=== PATIENT | female | born 1975 | race Two or more races ===

== ENCOUNTER 2025-01-10 12:25 | Inpatient (IN) | payer SELFPAY ==
[2025-01-09 21:04] VITALS: PULSE 104; RESP 17; O2SAT 98
[~2025-01-10] VITALS: Ht 157.5 cm; Wt 60.0 kg
--- NOTE | 2025-01-10 13:14 | ED.PDOC ---
General HPI Comments 49 year old female presents to the ED with a chief compliant of flank pain onset 2 weeks. Patient states she has been experiencing bilateral flank pain for the past 2 weeks as well as dysuria, hematuria, fever, chills. Denies nausea, vomiting, diarrhea, dizziness, headache, blurred vision, chest pain, shortness of breath. No other symptoms or modifying factors present at this time. Chief Complaint: Flank Pain Time Seen by MD: 13:10 Reviewed notes: Medications, Allergies Allergies: Coded Allergies: NO KNOWN ALLERGIES (Unverified , 01/10/25) Information Source: Patient Mode of Arrival: Ambulatory Severity: Moderate Timing: Weeks Duration: Since onset Prehospital treatment: None Onset: Spontaneous Symptoms: Dysuria, Hematuria History of: None Location: (R) Flank, (L)Flank Modifying factors: None associated signs and symptoms: Fever, Flank Pain, Dysuria, Hematuria Past Medical History PAST MEDICAL HISTORY: Denies Surgical History: Denies all surgeries BRIDGE CONTRACTOR History: 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 History Family History Family History: Reviewed,noncontributory to illness, No family hx of Cancer, No family hx of DM, No family hx of Heart adina, No family hx of HTN, No family hx ofKidney adina, No family hx of Liver adina, No family hx of Lung adina, No family hx of Stroke Social History Smoker: Non-Smoker Alcohol: Denies ETOH Use Drugs: Denies Drug Use Lives In: Home Constitutional: reports: chills, fever; denies: diaphoresis, fatigue, malaise, sweats, weakness, others EENTM: denies: blurred vision, double vision, ear bleeding, ear discharge, ear drainage, ear pain, ear ringing, eye pain, eye redness, hearing loss, mouth pain, mouth swelling, nasal discharge, nose bleeding, nose congestion, nose pain, photophobia, tearing, throat pain, throat swelling, voice changes, others Respiratory: denies: cough, hemoptysis, orthopnea, SOB at rest, shortness of breath, SOB with excertion, stridor, wheezing, others Cardiovascular: denies: chest pain, dizzy spells, diaphoresis, Dyspnea on exertion, edema, irregular heart beat, left arm pain, lightheadedness, palpitations, PND, syncope, others Gastrointestinal: denies: abdomen distended, abdominal pain, blood streaked bowels, constipated, diarrhea, dysphagia, difficulty swallowing, hematemesis, melena, nausea, poor appetite, poor fluid intake, rectal bleeding, rectal pain, vomiting, others Genitourinary: reports: dysuria, flank pain, hematuria; denies: abnormal vagina bleeding, burning, dyspareunia, frequency, incontinence, pain, , vagina discharge, urgency, others Neurological: denies: dizziness, fainting, headache, left sided numbness, left sided weakness, numbness, paresthesia, pre-existing deficit, right sided numbness, right sided weakness, seizure, speech problems, tingling, tremors, weakness, others Musculoskeletal: denies: back pain, gout, joint pain, joint swelling, muscle pain, muscle stiffness, neck pain, others Integumetry: denies: bruises, change in color, change in hair/nails, dryness, laceration, lesions, lumps, rash, wounds, others Allergic/Immunocompromised: denies: Difficulty Healing, Frequent Infections, Hives, Itching, others Hematologic/Lymphatic: denies: anemia, blood clots, easy bleeding, easy bruising, swollen glands, others Endocrine: denies: excessive hunger, excessive sweating, excessive thirst, excessive urination, flushing, intolerance to cold, intolerance to heat, u nexplained weight gain, unexplained weight loss, others Psychiatric: denies: anxiety, bipolar disorder, depression, hopeless, panic disorder, schizophrenia, sleepless, suicidal, others All Other Systems: Reviewed and Negative Physical Exam General Appearance: Moderate Distress, Normal HEENT: Normal ENT Inspection, Pharynx Normal, TMs Normal Neck: Full Range of Motion, Non-Tender, Normal, Normal Inspection Respiratory: Chest Non-Tender, Lungs Clear, No Accessory Muscle Use, No Respiratory Distress, Normal Breath Sounds Cardiovascular: No Edema, No JVD, No Murmur, No Gallop, Normal Peripheral Puls es, Regular Rate/Rhythm Breast Exam: Deferred Gastrointestinal: No Organomegaly, Non Tender, No Pulsatile Mass, Normal Bowel Sounds, Soft Genitalia: Deferred Pelvic: Deferred Rectal: Deferred Extremities: No calf tenderness, Normal capillary refill, Normal inspection, Normal range of motion, Non-tender, No pedal edema Musculoskeletal : Apperance: Normal Neurologic: Alert, software sales II-XII nml as Tested, No Motor Deficits, Normal Affect, Normal Mood, No Sensory Deficits Cerebellar Function: Normal Reflexes: Normal Skin: Dry, Normal Color, Warm Peripheral Pulses: 3+ Radial (R), 3+ Radial (L) Lymphatic: No Adenopathy Was a procedure done? Was a procedure done?: No Differential Diagnosis Kidney stone (Female): Musculoskeletal pain, Urinary obstruction, Urolithiasis X-Ray, Labs, Meds, VS Vital Signs Date Time Temp Pulse Resp B/P (MAP) Pulse Ox O2 Delivery O2 Flow Rate FiO2 01/10/25 12:28 97.0 124 15 132/81 100 97.0 Lab Test 01/10/25 13:31 Range/Units White Blood Count 6.6 4.4-10.8 10^3/uL Red Blood Count 4.11 4.0-5.20 10^6/uL Hemoglobin 12.8 12.2-16.2 g/dL Hematocrit 37.1 36.0-46.0 % Mean Corpuscular Volume 90.4 80.0-100.0 fL Mean Corpuscular Hemoglobin 31.3 28.0-32.0 pg Mean Corpuscular Hemoglobin Concent 34.6 32.0-36.0 g/dL Red Cell Distribution Width 17.3 H 11.8-14.3 % Platelet Count 151 140-450 10^3/uL Mean Platelet Volume 10.1 6.9-10.8 fL Neutrophils (%) (Auto) 58.8 37.0-80.0 % Lymphocytes (%) (Auto) 24.4 10.0-50.0 % Monocytes (%) (Auto) 13.9 H 0.0-12.0 % Eosinophils (%) (Auto) 2.1 0.0-7.0 % Basophils (%) (Auto) 0.8 0.0-2.0 % Neutrophils # (Auto) 3.9 1.6-8.6 10 ^3/uL Lymphocytes # (Auto) 1.6 0.4-5.4 10 ^3/uL Monocytes # (Auto) 0.9 0-1.3 10 ^3/uL Eosinophils # (Auto) 0.1 0-0.8 10 ^3/uL Basophils # (Auto) 0.1 0-0.2 10 ^3/uL Nucleated Red Blood Cells 0.3 % Sodium Level 138 136-145 mmol/L Potassium Level 3.5 3.5-5.1 mmol/L Chloride Level 104 98-107 mmol/L Carbon Dioxide Level 26 20-31 mmol/L Anion Gap 8 5-15 Blood Urea Nitrogen 9 9-23 mg/dL Creatinine 0.74 0.550-1.02 mg/dL Glomerular Filtration Rate Calc 100 >90 mL/min BUN/Creatinine Ratio 12.2 10.0-20.0 Serum Glucose 101 74-106 mg/dL Calcium Level 8.5 L 8.7-10.4 mg/dL Patient alert. Has been feeling weak. Burning on urination. Possible sepsis from urinary tract infection. WBC within normal limits. Hemoglobin within normal limits. Tachycardic. Saturation pristine on room air. Explained to the patient. Continue monitoring. Time of 1ST Reevaluation: 13:40 Reevaluation 1ST: Unchanged Patient Education/Counseling: Diagnosis, Treatment, Prognosis Family Education/Counseling: No Family Present SEPSIS Sepsis Screen Date sepsis recognized/suspect: Jan 10, 2025 Time Sepsis recognized/suspect: 1230 Recent Procedure: No On Antibiotic Therapy: No Respiratory Rate >20: No Heart Rate >90: Yes Temp<36 C (96.8 F) or >38.3 C: No SBP <90 or MAP <65 mmHG: No New Acute Mental Status Change: No Is the patient on CPAP, BIPAP,: No Physician Orders Urinalysis (01/10/25 13:19) Urine Bacterial Culture (01/10/25 13:19) Vital Signs Date Time Temp Pulse Resp B/P (MAP) Pulse Ox O2 Delivery O2 Flow Rate FiO2 01/10/25 12:28 97.0 124 15 132/81 100 97.0 Laboratory Tests Test 01/10/25 13:31 White Blood Count 6.6 10^3/uL (4.4-10.8) Departure 1 Departure Time of Disposition: 14:46 Impression: Primary Impression: Sepsis due to urinary tract infection Disposition: 09 ADMITTED INPATIENT Admit to: Med Surg Condition: Guarded Critical Care Note Critical Care Time?: No Stability Stability form required: No Heart Score Heart Score: Heart Score Response (Comments) Value History N/A 0 EKG N/A 0 Age N/A 0 Risk Factors N/A 0 Troponin N/A 0 Total 0 I personally scribed for JASIEL HINES MD ([email or web address]) on 01/10/25 at 13:14. Electronically submitted by Brynn De Jesus ([email or web address]). JASIEL HINES MD Jan 10, 2025 13:14
[2025-01-10] MEDS: ONDANSETRON HCL 4 MG/2 ML VIAL IV ONE (13:30)
[2025-01-10] MEDS: MORPHINE SULFATE 4 MG/ML SYR/VIAL IV ONE (13:30)
[2025-01-10] MEDS: SODIUM CHLORIDE 0.9% 1,000 ML IVB ONE (13:30)
[2025-01-10 13:49] LABS: Hematocrit 37.1 % (36.0-46.0); Hemoglobin 12.8 g/dL (12.2-16.2); Mean Corpuscular Hemoglobin 31.3 pg (28.0-32.0); Mean Corpuscular Volume 90.4 fL (80.0-100.0); Nucleated Red Blood Cells % 0.3 %
[2025-01-10 14:00] LABS: Chloride 104 mmol/L (98-107); Potassium 3.5 mmol/L (3.5-5.1); Sodium 138 mmol/L (136-145)
[2025-01-10 14:01] LABS: Anion Gap 8 (5-15); Carbon Dioxide 26 mmol/L (20-31)
[2025-01-10 14:02] LABS: Calcium 8.5 mg/dL (8.7-10.4)
[2025-01-10 14:07] LABS: Blood Urea Nitrogen 9 mg/dL (9-23); Glucose 101 mg/dL (74-106)
[2025-01-10 14:09] LABS: BUN/Creatinine Ratio 12.2 (10.0-20.0)
[2025-01-10 16:25] LABS: Urine Protein, UAD Negative (Negative)
[2025-01-10] MEDS ORDERED: ACETAMINOPHEN 325 MG TAB PO PRN (16:30)
[2025-01-10 16:56] LABS: Amphetamine Screen, Urine Neg (NEGATIVE); Barbiturate Scree,Urine Neg (NEGATIVE); Benzodiazephine Screen, Urine Neg (NEGATIVE); Cannabinoid Screen, Urine Neg (NEGATIVE); Cocaine Screen, Urine Neg (NEGATIVE); Opiate Scree,Urine Neg (NEGATIVE); Phencyclidine Screen, Urine Neg (NEGATIVE)
--- NOTE | 2025-01-10 18:00 | DVHHP2 ---
History of Present Illness History of Present Illness This is a 49-year-old female with no PMHx and not taking any chronic medications, who presents with 2 weeks of bilateral flank pain, progressive in intensity, associated with dysuria and red urine. She reports fever that started yesterday and chills today. She denies nausea, vomiting, abdominal pain, chest pain, cough, SOB, vaginal bleeding, or discharge. She had a UTI in August 2024. Labs show CBC normal, CMP normal, but UA with bilirubin 2+, leukocyte esterase 1+, WBC 11, nitrites negative. She has mild bilateral CVA tenderness on exam. She will be admitted for suspected complicated UTI vs early pyelonephritis. PAST MEDICAL HISTORY No PMHx. PAST SURGICAL HISTORY Denies. MEDICATIONS None. ALLERGIES NKDA. SOCIAL HISTORY Lives at home. Denies tobacco, alcohol, illicit drugs. FAMILY HISTORY Non-contributory. Review of Systems Allergies: Coded Allergies: NO KNOWN ALLERGIES (Unverified , 01/10/25) Medications Current Medications Medications Dose Ordered Sig/Sunitha Route Start Time Stop Time Status Last Admin Dose Admin Acetaminophen 650 mg Q6HP PRN PO 01/10/25 16:30 Enoxaparin Sodium 40 mg DAILY SC 01/11/25 10:00 Ceftriaxone Sodium 50 ml @ 100 mls/hr DAILY@09 IV 01/11/25 16:30 Ketorolac Tromethamine 15 mg Q6HPRN PRN IV 01/10/25 16:30 01/15/25 16:29 Exam Vital Signs Vital Signs Date Time Temp Pulse Resp B/P (MAP) Pulse Ox O2 Delivery O2 Flow Rate FiO2 01/10/25 12:28 97.0 124 15 132/81 100 97.0 Exam General: Alert, oriented, uncomfortable but non-toxic. HEENT: NC/AT, PERRLA, no icterus. Neck: Supple, no LAD. CV: RRR, no murmurs/rubs/gallops. Resp: CTAB, no wheezes or crackles. GI: Soft, nondistended, mild suprapubic tenderness. No guarding or rebound. /Back: Mild bilateral CVA tenderness. Ext: No edema. Skin: Warm, dry, no rashes. Neuro: A&O3, no focal deficits. Psych: Appropriate. Labs/Xrays Labs Test 01/10/25 15:53 01/10/25 13:31 Range/Units Urine Color Dark-yellow Yellow Urine Clarity Turbid H Clear Urine pH 6.0 5.0-9.0 Urine Specific Jenkins 1.017 1.001-1.035 Urine Protein Negative Negative Urine Ketones Negative Negative Urine Blood Negative Negative /uL Urine Nitrite Negative Negative Urine Bilirubin 2+ H Negative Urine Urobilinogen 6 Negative mg/dL Urine Leukocyte Esterase 1+ Negative /uL Urine RBC 3 0 - 4 /hpf Urine Microscopic WBC 11 H 0-5 /HPF Urine Squamous Epithelial Cells Mod <5 /hpf Urine Bacteria Few H None Seen /hpf Urine Mucus Few None Seen Urine Glucose Normal Normal mg/dL Urine Opiates Screen Neg NEGATIVE Urine Fentanyl Screen Neg NEGATIVE Urine Barbiturates Screen Neg NEGATIVE Urine Phencyclidine Screen Neg NEGATIVE Urine Amphetamines Screen Neg NEGATIVE Urine Benzodiazepines Screen Neg NEGATIVE Urine Cocaine Screen Neg NEGATIVE Urine Cannabinoids Screen Neg NEGATIVE White Blood Count 6.6 4.4-10.8 10^3/uL Red Blood Count 4.11 4.0-5.20 10^6/uL Hemoglobin 12.8 12.2-16.2 g/dL Hematocrit 37.1 36.0-46.0 % Mean Corpuscular Volume 90.4 80.0-100.0 fL Mean Corpuscular Hemoglobin 31.3 28.0-32.0 pg Mean Corpuscular Hemoglobin Concent 34.6 32.0-36.0 g/dL Red Cell Distribution Width 17.3 H 11.8-14.3 % Platelet Count 151 140-450 10^3/uL Mean Platelet Volume 10.1 6.9-10.8 fL Neutrophils (%) (Auto) 58.8 37.0-80.0 % Lymphocytes (%) (Auto) 24.4 10.0-50.0 % Monocytes (%) (Auto) 13.9 H 0.0-12.0 % Eosinophils (%) (Auto) 2.1 0.0-7.0 % Basophils (%) (Auto) 0.8 0.0-2.0 % Neutrophils # (Auto) 3.9 1.6-8.6 10 ^3/uL Lymphocytes # (Auto) 1.6 0.4-5.4 10 ^3/uL Monocytes # (Auto) 0.9 0-1.3 10 ^3/uL Eosinophils # (Auto) 0.1 0-0.8 10 ^3/uL Basophils # (Auto) 0.1 0-0.2 10 ^3/uL Nucleated Red Blood Cells 0.3 % Sodium Level 138 136-145 mmol/L Potassium Level 3.5 3.5-5.1 mmol/L Chloride Level 104 98-107 mmol/L Carbon Dioxide Level 26 20-31 mmol/L Anion Gap 8 5-15 Blood Urea Nitrogen 9 9-23 mg/dL Creatinine 0.74 0.550-1.02 mg/dL Glomerular Filtration Rate Calc 100 >90 mL/min BUN/Creatinine Ratio 12.2 10.0-20.0 Serum Glucose 101 74-106 mg/dL Hemoglobin A1c 4.6 <5.7 % A1C Calcium Level 8.5 L 8.7-10.4 mg/dL SEPSIS Sepsis Screen Date sepsis recognized/suspect: Jan 10, 2025 Time Sepsis recognized/suspect: 1229 Recent Procedure: No On Antibiotic Therapy: No Respiratory Rate >20: No Heart Rate >90: Yes Temp<36 C (96.8 F) or >38.3 C: No SBP <90 or MAP <65 mmHG: No New Acute Mental Status Change: No Is the patient on CPAP, BIPAP,: No Physician Orders Urine Bacterial Culture (01/10/25 13:19) Admit (01/10/25 16:18) Code Status (01/10/25 16:18) Vital Signs .PER UNIT PROTOCOL (01/10/25 16:18) Review Orders With Adm.Md (01/10/25 16:18) Regular Diet (01/10/25 Dinner) Acetaminophen Tablet (Tylenol Tablet) (01/10/25 16:30) Notify Md Of Changes From Base (01/10/25 16:18) Advance Directive (01/10/25 16:18) Patient Condition (01/10/25 16:18) Allergies (01/10/25 16:18) Ambulate Every 4hours Q4H (01/10/25 16:18) Enoxaparin Sodium (Lovenox) (01/11/25 10:00) Oxygen By Nasal Cannula (01/10/25 16:18) Stat Ekg For Chest Pain (01/10/25 16:18) Notify Md Of Changes From Base (01/10/25 16:18) Route Sales Associate For 24 Hours (01/10/25 16:18) Emergency Dysrhythmia Protocol (01/10/25 16:18) Rhythm Strips Once Every Shift (01/10/25 16:18) Ceftriaxone 1gm/50ml (Rocephin) (01/11/25 16:30) Ketorolac Injection (Toradol Injection) (01/10/25 16:30) Sodium Chloride 0.9% (01/10/25 16:30) Kidney (01/10/25 17:59) Vital Signs Date Time Temp Pulse Resp B/P (MAP) Pulse Ox O2 Delivery O2 Flow Rate FiO2 01/10/25 12:28 97.0 124 15 132/81 100 97.0 Laboratory Tests Test 01/10/25 13:31 White Blood Count 6.6 10^3/uL (4.4-10.8) Assessment/Plan Assessment/Plan 49-year-old female with no PMHx admitted for complicated UTI vs early pyelonephritis. 1. Complicated UTI vs acute pyelonephritis Symptomatic: flank pain 2 weeks, dysuria, red urine, fever/chills. UA: bilirubin 2+, LE 1+, WBC 11; nitrite negative. CBC/BMP normal. Mild bilateral CVA tenderness. Plan: Start Ceftriaxone 1g IV daily. IV fluids. Urine culture Renal ultrasound to rule out obstruction, hydronephrosis, nephrolithiasis. Strict I/Os. Pain control: Ketorolac IV PRN Reassess after culture results. Disposition Admit to med/surg. Case discussed with Dr Luther Plan discussed with: Patient, Other (rn) My Orders Orders - DILLON MURPHY Procedure Category Date Status Time Admit ADMIT 01/10/25 Transmitted 16:18 Code Status CODE 01/10/25 Transmitted 16:18 Vital Signs DARON 01/10/25 In Process 16:18 Review Orders With DARON 01/10/25 In Process Adm. 16:18 Regular Diet DIET 01/10/25 Transmitted Dinner Acetaminophen Tablet PHA 01/10/25 In Process (Tylenol Tablet) 16:30 Notify Of Changes DARON 01/10/25 In Process From Base 16:18 Advance Directive DARON 01/10/25 In Process 16:18 Patient Condition ORDERS 01/10/25 Transmitted 16:18 Allergies DARON 01/10/25 In Process 16:18 Ambulate Every 4hours DARON 01/10/25 In Process 16:18 Enoxaparin Sodium PHA 01/11/25 In Process (Lovenox) 10:00 Oxygen By Nasal RT 01/10/25 Transmitted Cannula 16:18 Stat Ekg For Chest [facility] 01/10/25 In Process Pain 16:18 Notify Of Changes [facility] 01/10/25 In Process From Base 16:18 Route Sales Associate For [facility] 01/10/25 In Process 24 Hours 16:18 Emergency Dysrhythmia [facility] 01/10/25 In Process Protocol 16:18 Rhythm Strips Once [facility] 01/10/25 In Process Every Shift 16:18 Ceftriaxone 1gm/50ml [facility]A 01/11/25 In Process (Rocephin) 16:30 Ketorolac Injection PHA 01/10/25 In Process (Toradol Injection) 16:30 Sodium Chloride 0.9% PHA 01/10/25 In Process 16:30 Kidney US 01/10/25 Verified 17:59 Date of Service: Jan 10, 2025 Billing Provider: DILLON MURPHY RESIDENT Common Visit Codes: [id number] INP/OBS CARE (HIGH) DILLON MURPHY Jan 10, 2025 18:00
--- NOTE | 2025-01-10 19:33 | DVH ---
INDICATION: rule out hydronephrosis TECHNIQUE: Multiple real-time sonographic images of the kidneys and bladder were obtained. COMPARISON: None FINDINGS: The right kidney measures 9.8 cm in length, which is normal in size. There is normal echogenicity of the right kidney. No hydronephrosis. The left kidney measures 9.9 cm in length, which is normal in size. There is normal echogenicity of the left kidney. No hydronephrosis. No large intraluminal masses are seen in the bladder. Prior to voiding the bladder volume measures volume 58 cc. Bladder wall is 1.5 mm Right and left ureteral jets visualized in the bladder Postvoid bladder volume not received IMPRESSION: 1. Normal sonographic appearance of the kidneys. No hydronephrosis. 2. Right kidney measures 9.8 cm. 3. Left kidney measures 9.9 cm.
[2025-01-10 21:00] VITALS: BP 115/72; PULSE 104; RESP 18; TEMP 97.7; O2SAT 98
[2025-01-10 21:04] VITALS: BP 115/72; PULSE 104; RESP 17; TEMP 97.7; O2SAT 98
[2025-01-11] VITALS (7 sets, daily range): BP systolic 92–110; BP diastolic 59–75; PULSE 76–100; RESP 17–20; TEMP 97.2–99.5; O2SAT 97–100
[2025-01-11 07:08] LABS: Anion Gap 7 (5-15); BUN/Creatinine Ratio 14.5 (10.0-20.0); Blood Urea Nitrogen 9 mg/dL (9-23); Carbon Dioxide 25 mmol/L (20-31); Potassium 3.6 mmol/L (3.5-5.1); Sodium 142 mmol/L (136-145); Total Protein 6.2 g/dL (5.7-8.2)
[2025-01-11 07:10] LABS: Hematocrit 30.0 % (36.0-46.0); Hemoglobin 10.2 g/dL (12.2-16.2); Mean Corpuscular Hemoglobin 30.5 pg (28.0-32.0); Mean Corpuscular Volume 89.8 fL (80.0-100.0)
[2025-01-11 07:18] LABS: Alanine Aminotransferase 380 U/L (7-40); Albumin 2.0 g/dL (3.2-4.8); Alkaline Phosphatase 449 U/L (46-116); Bilirubin, Total 8.1 mg/dL (0.2-1.0); Calcium 7.9 mg/dL (8.7-10.4); Chloride 110 mmol/L (98-107); Glucose 55 mg/dL (74-106)
[2025-01-11 07:51] LABS: Total Cells Counted 100.0 (100)
--- NOTE | 2025-01-11 09:17 | DVH ---
CLINICAL HISTORY: Cirrhosis of liver/hepatitis TECHNIQUE: Transabdominal sonogram was performed of the right upper quadrant. COMPARISON: None FINDINGS: The liver is heterogeneous in echogenicity and nodular in contour. There is a 2 cm echogenic lesion within the right hepatic lobe. No intrahepatic biliary ductal dilatation is present. The liver measures 12.5 cm. The gallbladder demonstrates mild nonspecific wall thickening. There is no stones or sludge. Sonographic brown's sign is reported to be absent. The common bile duct is normal in caliber, measuring 4 mm. The partially visualized pancreas is grossly unremarkable. The right kidney is normal in echogenicity and measures 11 cm in length. There is no evidence for hydronephrosis or calculi. IMPRESSION: Cirrhotic liver morphology with 2 cm right hepatic lobe echogenic lesion. Recommend liver MRI or CT with and without IV contrast for further evaluation. Mild nonspecific gallbladder wall thickening.
[2025-01-11] MEDS: SODIUM CHLORIDE 0.9% 1,000 ML IV ONE (09:29)
[2025-01-11] MEDS: ENOXAPARIN SOD 40 MG/0.4 ML SYRINGE SC SCH (09:29)
[2025-01-11 12:58] LABS: Iron 122.0 ug/dL (50-170)
[2025-01-11 13:05] LABS: Total Iron Binding Capacity 196.0 ug/dL (250-425)
[2025-01-11 13:50] LABS: INR 1.56 (0.9-1.15); Partial Thromboplastin Time 41.3 SEC (24.5-34.5); Prothrombin Time 15.8 sec (9.3-11.8)
--- NOTE | 2025-01-11 15:59 | DVHPNRES ---
Progress Note Date Seen: Jan 11, 2025 Resident Creating Document: KHLOE TAY RESIDENT Medical Necessity Reason Pt with a Central, PICC or Fol: No Subjective Review of Systems This is a 49-year-old female with no PMHx and not taking any chronic medications, who presents with 2 weeks of bilateral flank pain, progressive in intensity, 10/10, intermittent, radiating to the right lower abdomen, associated with nausea, dysuria and red urine. She reports fever that started yesterday and chills today. Patient also complained of unintentional weight loss and anorexia for a while. She denies nausea, vomiting, abdominal pain, chest pain, cough, SOB, vaginal bleeding, or discharge. She had a UTI in August 2024. Initial lab reviewed revealed bilirubin 8.5, AST of 642, ALT 380, alkaline phosphatase 449, UA with bilirubin 2+, leukocyte esterase 1+, WBC 11, nitrites negative. UDS negative A1c 4.6 iron 122, ferritin 692, % saturation 62.2. Ultrasound of the liver revealed-Cirrhotic liver morphology with 2 cm right hepatic lobe echogenic lesion. .Mild nonspecific gallbladder wall thickening. Renal ultrasound Normal sonographic appearance of the kidneys. No hydronephrosis. PMH-none PSH- none Allergy- NGT Personal History/ Social History- denies smoking/alcoholism/drug abuse, lives at home with the family ROS Cardiovascular- deny acute chest pain or shortness of breath or cough or palpitation Respiratory denies cough or short of breath or wheezing Gastrointestinal- denies any rectal bleeding or vomiting Musculoskeletal-denies acute joint swelling or tenderness or redness Neurological- denies acute dysarthria, dysphagia, change in vision Psychiatry- denies depression or SI or HI Skin- denies acute rash or purpura Patient was seen today at bedside, labs and chart reviewed Patient with transaminitis, ordered ultrasound of the liver which revealed suspected Cirrhotic liver morphology with 2 cm right hepatic lobe echogenic lesion MELD SCORE 19, estimated 3 month mortality 19.6 Ordered acute hepatitis panel, PT APTT, mitochondrial antibody, ASHLIE, serum acetaminophen level, serum iron, serum ferritin, serum alpha fetoprotein, CA 19.9, CEA, chromatin antibody, Yarelis 1 antibody, centromere B antibody,, MRCP Ordered GI consult for further evaluation and care Ceftriaxone for UTI, urine culture no growth so far PT 15.8, INR 1.56 Carcinoembryonic antigen 3.03 MRCP revealed- lesions within the liver measuring 2.3 cm, 0.9 cm concerning for potential neoplasm. Pancreatic and peripancreatic edema which could represent sequela of pancreatitis. Correlate with appropriate lab values. Gallbladder distention and pericholecystic/ gallbladder wall edema. No definitive choledocholithiasis identified. Common bile duct suboptimally characterized but appears normal in caliber. Correlate for cholecystitis. Small volume ascites fluid. Small bowel wall edema/ thickening which can be secondary to portal hypertension, enteritis, inflammatory disease. Ordered MRI abdomen with and without contrast Objective vital signs Vital Sign Date Time Temp Pulse Resp B/P (MAP) Pulse Ox O2 Delivery O2 Flow Rate FiO2 01/11/25 13:00 98.3 100 20 110/65 (80) 100 98.3 01/11/25 08:15 Room Air* 0 21 Total Intake and Output 01/10/25 01/10/25 01/11/25 15:00 23:00 07:00 Intake Total 1600 ml Balance 1600 ml medications Current Medications Medications Dose Ordered Sig/Sunitha Route Start Time Stop Time Status Last Admin Dose Admin Acetaminophen 650 mg Q6HP PRN PO 01/10/25 16:30 Enoxaparin Sodium 40 mg DAILY SC 01/11/25 10:00 01/11/25 09:29 40 MG Ketorolac Tromethamine 15 mg Q6HPRN PRN IV 01/10/25 16:30 01/15/25 16:29 Ceftriaxone Sodium/Dextrose 50 ml @ 50 mls/hr DAILY IV 01/11/25 08:15 01/11/25 09:29 50 MLS/HR Examination General examination- HEENT- PEERLA, no acute nasal discharge Cardiovascular- S1-S2 audible, rate and rhythm regular, no murmur Respiratory- CTAB, no wheeze or rhonchi Gastrointestinal-nontender, bowel sound+. Nondistended Musculoskeletal-no acute joint swelling or tenderness or redness Lower extremity- Neurological- cranial nerves intact, no acute dysarthria or dysphagia Psychiatry- denies depression or SI or HI Skin- no acute rash or purpura laboratory and microbiology Laboratory Tests 01/11/25 06:09 Test 01/11/25 06:09 Range/Units Serum Glucose 55 L 74-106 mg/dL Microbiology Date/Time Source Procedure Growth Status 01/10/25 15:53 Voided Urine Urine Culture - Preliminary No growth Resulted Problem List/Assessment/Plan Problem List/Assessment/Plan # Assessment and plan # UTI -urine culture no growth so far -continue ceftriaxone as prescribed # acute hepatic failure likely cirrhosis of liver/suspected malignancy of liver # cirrhosis of liver # suspected malignancy of the liver # transaminitis # ascites # suspected portal hypertension -bilirubin 8.5, AST of 642, ALT 380, alkaline phosphatase 449 -INR 1.56 -MELD SCORE 19, estimated 3 month mortality 19.6 -ultrasound of the liver which revealed suspected Cirrhotic liver morphology with 2 cm right hepatic lobe echogenic lesion -Ordered acute hepatitis panel, PT APTT, mitochondrial antibody, ASHLIE, serum acetaminophen level, serum iron, serum ferritin, serum alpha fetoprotein, CA 19.9, CEA, MRCP -MRCP revealed- lesions within the liver measuring 2.3 cm, 0.9 cm concerning for potential neoplasm. Pancreatic and peripancreatic edema which could represent sequela of pancreatitis. Gallbladder distention and pericholecystic/ gallbladder wall edema. No definitive choledocholithiasis identified. Common bile duct suboptimally characterized but appears normal in caliber. Correlate for cholecystitis. Small volume ascites fluid. Small bowel wall edema/ thickening which can be secondary to portal hypertension, enteritis, inflammatory disease. -continue current conservative management -Ordered MRI abdomen with and without contrast -ordered GI consult for further evaluation and care -continue current conservative manage Goals of care, Code status Full code ; discussed with >15 minutes PUD prophylaxis: Pantoprazole DVT prophylaxis: SCD Plan discussed with Dr. Luther , nursing staff, Total time spent on patient evaluation, chart review, assessment and plan, discussion discussion >35 minutes Plan discussed with: Patient, Other (RN) My Orders My Orders Orders - KHLOE TAY RESIDENT Procedure Category Date Status Time LIVER US 01/11/25 Resulted 08:08 Ceftriaxone 2gm/50ml PHA 01/11/25 In Process (Rocephin 2gm/50ml) 08:15 Acute Hepatitis Panel LAB 01/11/25 In Process 11:37 * [facility] Scientist CONS 01/11/25 Transmitted 14:11 Mrcp Mri MRI 01/11/25 Taken 14:11 Afp Serum Tumor Marker LAB 01/11/25 In Process 14:13 Carbohydrate Antigen LAB 01/11/25 In Process 19-9 14:45 Visit Coding STANDARD RES Billing Provider: SONDRA LUTHER MD Date of Service if different f: Jan 11, 2025 Common Visit Codes: 26724-[id number] INP/OBS CARE(HIGH) KHLOE TAY RESIDENT Jan 11, 2025 15:58
--- NOTE | 2025-01-11 16:01 | DVH ---
PROCEDURE: MRI MRCP MRI Indication: TROPONIN JAUNDICE/HEPATITIS/CIRRHOSIS COMPARISON: 01/11/2025 TECHNIQUE: Multiplanar multisequence images of the abdomen are obtained per MRCP protocol. FINDINGS: Adrenal glands unremarkable. The spleen measures 11.5 cm AP. Peripancreatic, pancreatic interstitial edema. Gallbladder distention. Pericholecystic, gallbladder wall edema. The common bile duct is overall poorly characterized but does not appear to be dilated measuring approximately 3 mm. Similarly, the pancreatic duct measures approximately 2 mm. The liver appears cirrhotic morphology. Posterior right hepatic lobe T2 bright lesion/ mass measuring 2.3 cm. Hepatic dome T2 bright lesion/ mass measuring 9 mm. Kidneys demonstrate no hydronephrosis. Stomach partially distended. Small volume of ascites fluid. Small bowel wall edema. IMPRESSION: Cirrhotic morphology appearance liver. There are 2 T2 bright lesions within the liver measuring 2.3 cm, 0.9 cm concerning for potential neoplasm. Recommend multiphasic MRI abdomen with and without contrast. Pancreatic and peripancreatic edema which could represent sequela of pancreatitis. Correlate with appropriate lab values. Gallbladder distention and pericholecystic/ gallbladder wall edema. No definitive choledocholithiasis identified. Common bile duct suboptimally characterized but appears normal in caliber. Correlate for cholecystitis. Small volume ascites fluid. Small bowel wall edema/ thickening which can be secondary to portal hypertension, enteritis, inflammatory disease. Other findings as described Recommend MRI abdomen with and without contrast.
[2025-01-11] MEDS ORDERED: LACTULOSE 20Gm/30ML SOLN PO PRN (16:15)
[2025-01-11] MEDS: GADOTERATE MEG 10 MMOL/20ml INJ (0.5MMOL/ml) IV ONE (16:43)
[2025-01-11] MEDS ORDERED: DEXTROSE (50%) 50ML SYRG IV PRN (17:15)
[2025-01-11] MEDS: MAGNESIUM SULFATE 1GM/100ML 100 ML IV ONE (17:34)
--- NOTE | 2025-01-11 18:34 | DVHCONRES ---
Date Seen: Jan 11, 2025 Resident Creating Document: HINA SUNSHINE RESIDENT Referring Physician DR TAY History of Present Illness 49-year-old female presented to the ER with a chief complaint of flank pain and symptoms of cystitis for the past 4 days. She denies nausea, vomiting, diarrhea or constipation at this time. Also reports hematuria. The patient does not follow up with a physician or does not take any medications. No medical history reported. Denies fever but reported chills. Patient was admitted for pyelonephritis. GI consultation for possible cirrhosis/suspected malignancy Patient seen and examined. Underwent MRCP which showed cirrhotic morphology, TTE right lesions within the liver measuring 2.3 cm 0.9 cm potential neoplasm. Pancreatic and peripancreatic edema. Gallbladder distention and pericholecystic gallbladder wall edema. Small volume ascites. Bilirubin 8.1. Allergies: Coded Allergies: NO KNOWN ALLERGIES (Unverified , 01/10/25) Current Medications Current Medications Medications (Trade) Dose Ordered Sig/Sunitha Route PRN Reason Start Time Stop Time Status Last Admin Enoxaparin Sodium (Lovenox) 40 mg DAILY SC 01/11/25 10:00 01/11/25 17:14 DC 01/11/25 09:29 Ceftriaxone Sodium 50 ml @ 100 mls/hr DAILY@09 IV 01/11/25 16:30 01/11/25 08:14 DC Ceftriaxone Sodium/Dextrose 50 ml @ 50 mls/hr DAILY IV 01/11/25 08:15 01/11/25 09:29 Pantoprazole Sodium (Protonix Tablet) 40 mg DAILY@0600 PO 01/12/25 06:00 Lactulose 30 ml DAILY PRN PO FOR CONSTIPATION 01/11/25 16:15 Diagnostic Test (Pha) (Accu-Chek Comfort Curve T) 1 strip ACHS 01/11/25 22:00 Dextrose 50 ml UD PRN IV Blood Sugar LESS THAN 60 01/11/25 17:15 Vital Signs Vital Signs Date Time Temp Pulse Resp B/P (MAP) Pulse Ox O2 Delivery O2 Flow Rate FiO2 01/11/25 17:00 99.5 88 20 100/73 (82) 99 99.5 01/11/25 08:15 Room Air* 0 21 Physical Exam Patient lying in bed, in no acute distress General: Well-built, afebrile, palor, scleral icterus noted, mucosa moist Cardiovascular: Regular S1 and S2. No murmurs, gallops or rubs. No JVD elevation. No pedal edema Respiratory: Normal B/L air entry on room air. Clear lung sounds on auscultation Abdomen: Soft, nontender, nondistended, normoactive bowel sounds, no rebound tenderness, no organomegaly, no masses Genitourinary: Deferred MSK/skin: Mobilizes 4 limbs. Skin is dry and warm Neurological: No motor, no sensitive deficits, normal speech. Pupils are isocoric and reactive. Psych/Mental Status: A/Ox3 Labs/Diagnostic Data Labs Test 01/11/25 12:53 01/11/25 09:55 01/11/25 06:09 01/10/25 15:53 Range/Units Prothrombin Time 15.8 H 9.3-11.8 sec Prothrombin Time INR 1.56 H 0.9-1.15 Activated Partial Thromboplast Time 41.3 H 24.5-34.5 SEC Lipase 37 12-53 U/L Carcinoembryonic Antigen 3.03 <=5.0 ng/mL Plasma/Serum Blood Alcohol < 3.0 <10 mg/dL White Blood Count 5.6 4.4-10.8 10^3/uL Red Blood Count 3.34 L 4.0-5.20 10^6/uL Hemoglobin 10.2 #L 12.2-16.2 g/dL Hematocrit 30.0 #L 36.0-46.0 % Mean Corpuscular Volume 89.8 80.0-100.0 fL Mean Corpuscular Hemoglobin 30.5 28.0-32.0 pg Mean Corpuscular Hemoglobin Concent 34.0 32.0-36.0 g/dL Red Cell Distribution Width 17.1 H 11.8-14.3 % Platelet Count 118 L 140-450 10^3/uL Mean Platelet Volume 10.2 6.9-10.8 fL Neutrophils (%) (Auto) 37.0-80.0 % Lymphocytes (%) (Auto) 10.0-50.0 % Monocytes (%) (Auto) 0.0-12.0 % Basophils (%) (Auto) 0.0-2.0 % Neutrophils # (Auto) 1.6-8.6 10 ^3/uL Lymphocytes # (Auto) 0.4-5.4 10 ^3/uL Monocytes # (Auto) 0-1.3 10 ^3/uL Differential Total Cells Counted 100.0 100 Neutrophils % (Manual) 54 37.0-80.0 Band Neutrophils % (Manual) 1 Lymphocytes % (Manual) 23 10.0-50.0 Monocytes % (Manual) 19 H 0-12 Eosinophils % (Manual) 3 0-7 Basophils % (Manual) 0 0.0-2.0 Metamyelocytes % (manual) 0 Myelocytes % (Manual) 0 Promyelocytes % (Manual) 0 Blast Cells % (Manual) 0 Reactive Lymphocytes 0 Platelet Estimate Decreased Target Cells Moderate Sodium Level 142 136-145 mmol/L Potassium Level 3.6 3.5-5.1 mmol/L Chloride Level 110 H 98-107 mmol/L Carbon Dioxide Level 25 20-31 mmol/L Anion Gap 7 5-15 Blood Urea Nitrogen 9 9-23 mg/dL Creatinine 0.62 0.550-1.02 mg/dL Glomerular Filtration Rate Calc 110 >90 mL/min BUN/Creatinine Ratio 14.5 10.0-20.0 Serum Glucose 55 L 74-106 mg/dL Calcium Level 7.9 L 8.7-10.4 mg/dL Magnesium Level 1.8 1.6-2.6 mg/dL Iron Level 122 50-170 ug/dL Total Iron Binding Capacity 196 L 250-425 ug/dL Percent Iron Saturation 62.2 H 15-50 % Ferritin 692.9 H 10-291 ng/mL Total Bilirubin 8.1 H 0.2-1.0 mg/dL Aspartate Amino Transferase (AST) 642 H 13-40 U/L Alanine Aminotransferase (ALT) 380 H 7-40 U/L Alkaline Phosphatase 449 H 46-116 U/L Total Protein 6.2 5.7-8.2 g/dL Albumin 2.0 L 3.2-4.8 g/dL Vitamin B12 Level 1022 H 211-911 pg/mL Vitamin D 25-Hydroxy 27.9 L 30.0-100 ng/mL Folic Acid 15.99 >5.38 ng/mL Thyroid Stimulating Hormone (TSH) 2.82 0.55-4.78 uIU/mL Acetaminophen Level < 2.0 L 10.0-20.0 UG/ML Urine Color Dark-yellow Yellow Urine Clarity Turbid H Clear Urine pH 6.0 5.0-9.0 Urine Specific [place] 1.017 1.001-1.035 Urine Protein Negative Negative Urine Ketones Negative Negative Urine Blood Negative Negative /uL Urine Nitrite Negative Negative Urine Bilirubin 2+ H Negative Urine Urobilinogen 6 Negative mg/dL Urine Leukocyte Esterase 1+ Negative /uL Urine RBC 3 0 - 4 /hpf Urine Microscopic WBC 11 H 0-5 /HPF Urine Squamous Epithelial Cells Mod <5 /hpf Urine Bacteria Few H None Seen /hpf Urine Mucus Few None Seen Urine Glucose Normal Normal mg/dL Urine Opiates Screen Neg NEGATIVE Urine Fentanyl Screen Neg NEGATIVE Urine Barbiturates Screen Neg NEGATIVE Urine Phencyclidine Screen Neg NEGATIVE Urine Amphetamines Screen Neg NEGATIVE Urine Benzodiazepines Screen Neg NEGATIVE Urine Cocaine Screen Neg NEGATIVE Urine Cannabinoids Screen Neg NEGATIVE Test 01/10/25 13:31 Range/Units Eosinophils (%) (Auto) 2.1 0.0-7.0 % Eosinophils # (Auto) 0.1 0-0.8 10 ^3/uL Basophils # (Auto) 0.1 0-0.2 10 ^3/uL Nucleated Red Blood Cells 0.3 % Hemoglobin A1c 4.6 <5.7 % A1C Microbiology Date/Time Source Procedure Growth Status 01/10/25 15:53 Voided Urine Urine Culture - Preliminary No growth Resulted Assessment Questionable cirrhosis-meld score 19 Questionable liver mass/hemochromatosis Cholestatic liver disease Rule out acute hepatitis Acute cystitis Anemia likely hemodilution Severe protein calorie malnutrition Vitamin-D deficiency Iron panel shows normal iron, low TIBC, high% saturation, high ferritin Lipase 37 Plan: Recommendation: Dr. Henson: Follow up with hepatitis panel, follow up with tumor markers, direct bilirubin, antimitochondrial antibody test send out Patient would benefit from liver biopsy Follow up with ASHLIE Serum alcohol, Tylenol level was unremarkable Continue Protonix 40 mg daily Follow up with the ammonia We will continue to follow up Plan discussed with patient in which all questions have been answered Case discussed with Dr. Henson Plan discussed with: Patient HINA SUNSHINE RESIDENT Jan 11, 2025 18:34
--- NOTE | 2025-01-11 21:03 | DVH ---
EXAM: MRI MRI ABDOMEN W AND WO HISTORY: SUSPECTED MALIGNANCY OF THE ABDOMEN, PORTAL HYPERTENSION COMPARISON: MRI MRCP MRI on DOS: 01/11/25 TECHNIQUE: Multiplanar, multisequence imaging of the abdomen was performed with and without contrast. FINDINGS: [LOWER CHEST]: Trace bilateral pleural fluid. [LIVER]: Nodular contour of the liver correlate for chronic liver disease versus underlying cirrhosis. T2 hyperintense light bulb bright lesion measuring 2.2 x 1.9 cm in the right hepatic lobe. Upon postcontrast evaluation, peripheral discontinuous nodular enhancement and overall imaging findings compatible with cavernous hemangioma. Progressive fill-in on delayed images. Overall no suspicious arterial enhancing and washing out lesion. Inconspicuous background possible lace-like fibrosis. [SPLEEN]: Small volume ascites in the perisplenic space with mesenteric congestion. [PANCREAS]: The pancreas is normal in appearance without focal lesions. Normal pancreatic duct size. [GALLBLADDER AND DUCTS]: Gallbladder intramural edema. No visualized cholelithiasis. No biliary dilation. The cystic duct, right and left hepatic ducts, common hepatic duct, and common bile ducts are unremarkable. [ADRENAL GLANDS]: Unremarkable. [KIDNEYS]: Normal enhancement without suspicious lesions or hydronephrosis. [VISUALIZED BOWEL]: Grossly unremarkable. [VASCULATURE]: Mesenteric congestion. [LYMPHADENOPATHY]: No evidence for lymphadenopathy. [ASCITES]: Small volume ascites in the perihepatic and perisplenic spaces. [MUSCULOSKELETAL]: Bone marrow signal is normal. [OTHER]: None IMPRESSION: 1. No suspicious arterially enhancing and washout lesions. 2. Cavernous hemangioma in the right hepatic lobe. 3. Small volume ascites with mesenteric congestion. 4. Nodular contour of the liver correlate for chronic liver disease versus underlying cirrhosis. 5. LI-RADS 1 -negative 6. Recommendation: Consider continued surveillance
[2025-01-11] MEDS: ACCU-CHEK COMFORT CURVE STRIP VI SCH (23:12)
[2025-01-12 01:00] VITALS: BP 106/61; PULSE 89; RESP 17; TEMP 98.9; O2SAT 97
[2025-01-12 05:00] VITALS: BP_SYST 91; BP_SYST 93; BP_DIAS 47; BP_DIAS 58; PULSE 78; RESP 18; TEMP 97.8; O2SAT 96
[2025-01-12 05:36] LABS: Hematocrit 31.7 % (36.0-46.0); Hemoglobin 10.9 g/dL (12.2-16.2); Mean Corpuscular Hemoglobin 31.2 pg (28.0-32.0); Mean Corpuscular Volume 90.5 fL (80.0-100.0); Nucleated Red Blood Cells % 0.3 %
[2025-01-12 05:50] LABS: INR 1.6 (0.9-1.15); Partial Thromboplastin Time 39.0 SEC (24.5-34.5); Prothrombin Time 16.2 sec (9.3-11.8)
[2025-01-12 05:52] LABS: Anion Gap 8 (5-15); BUN/Creatinine Ratio 13.6 (10.0-20.0); Carbon Dioxide 25 mmol/L (20-31); Magnesium 1.9 mg/dL (1.6-2.6); Potassium 3.9 mmol/L (3.5-5.1); Sodium 143 mmol/L (136-145); Total Protein 6.2 g/dL (5.7-8.2)
[2025-01-12 05:57] LABS: Alanine Aminotransferase 385 U/L (7-40); Albumin 2.1 g/dL (3.2-4.8); Alkaline Phosphatase 465 U/L (46-116); Bilirubin, Direct 6.2 mg/dL (<0.3); Bilirubin, Total 8.1 mg/dL (0.2-1.0); Blood Urea Nitrogen 8 mg/dL (9-23); Calcium 7.8 mg/dL (8.7-10.4); Chloride 110 mmol/L (98-107); Glucose 64 mg/dL (74-106)
[2025-01-12] MEDS: PANTOPRAZOLE 40 MG TAB PO SCH (06:15)
[2025-01-12 09:00] VITALS: BP 93/62; PULSE 64; RESP 20; TEMP 98.6; O2SAT 93
[2025-01-12 11:07] LABS: Anti-Centromere B Antibody <0.2 AI (0.0-0.9); Anti-Jo-1 Antibody <0.2 AI (0.0-0.9); Anti-dsDNA Antibody 1 IU/mL (0-9); Antichromatin Antibody <0.2 AI (0.0-0.9); Antiscleroderma-70 Antibody <0.2 AI (0.0-0.9); Sjogren's Anti-SS-A Antibody <0.2 AI (0.0-0.9); Sjogren's Anti-SS-B Antibody <0.2 AI (0.0-0.9)
[2025-01-12 11:11] LABS: Hepatitis B Surface Antigen Negative (Negative); Hepatitis C Antibody Negative (Negative)
--- NOTE | 2025-01-12 12:50 | DVHINCON2 ---
Consultation - Surgical Date Seen: Jan 12, 2025 Referring Physician Reason for Consultation cholelithiasis, liver mass Allergies and medications Allergies: Coded Allergies: NO KNOWN ALLERGIES (Unverified , 01/10/25) Review of systems Review of Systems: Not Done Examination Vital signs Vital Signs Date Time Temp Pulse Resp B/P (MAP) Pulse Ox O2 Delivery O2 Flow Rate FiO2 01/12/25 09:00 98.6 64 20 93/62 (72) 93 98.6 01/12/25 08:20 Room Air* 0 21 Medications Current Medications Medications (Trade) Dose Ordered Sig/Sunitha Route PRN Reason Start Time Stop Time Status Last Admin Ceftriaxone Sodium 50 ml @ 100 mls/hr DAILY@09 IV 01/11/25 16:30 01/11/25 08:14 DC Pantoprazole Sodium (Protonix Tablet) 40 mg DAILY@0600 PO 01/12/25 06:00 01/12/25 06:15 Lactulose 30 ml DAILY PRN PO FOR CONSTIPATION 01/11/25 16:15 Diagnostic Test (Pha) (Accu-Chek Comfort Curve T) 1 strip ACHS 01/11/25 22:00 01/12/25 12:03 Dextrose 50 ml UD PRN IV Blood Sugar LESS THAN 60 01/11/25 17:15 Metronidazole 100 ml @ 100 mls/hr Q8HR IV 01/12/25 22:00 Laboratory Labs Test 01/12/25 11:45 01/12/25 05:03 01/11/25 12:53 01/11/25 09:55 Range/Units POC Glucose 130 H 70-106 mg/dl White Blood Count 6.4 4.4-10.8 10^3/uL Red Blood Count 3.50 L 4.0-5.20 10^6/uL Hemoglobin 10.9 L 12.2-16.2 g/dL Hematocrit 31.7 L 36.0-46.0 % Mean Corpuscular Volume 90.5 80.0-100.0 fL Mean Corpuscular Hemoglobin 31.2 28.0-32.0 pg Mean Corpuscular Hemoglobin Concent 34.5 32.0-36.0 g/dL Red Cell Distribution Width 17.2 H 11.8-14.3 % Platelet Count 129 L 140-450 10^3/uL Mean Platelet Volume 10.0 6.9-10.8 fL Neutrophils (%) (Auto) 40.0 37.0-80.0 % Lymphocytes (%) (Auto) 40.9 10.0-50.0 % Monocytes (%) (Auto) 15.3 H 0.0-12.0 % Eosinophils (%) (Auto) 3.2 0.0-7.0 % Basophils (%) (Auto) 0.6 0.0-2.0 % Neutrophils # (Auto) 2.6 1.6-8.6 10 ^3/uL Lymphocytes # (Auto) 2.6 0.4-5.4 10 ^3/uL Monocytes # (Auto) 1.0 0-1.3 10 ^3/uL Eosinophils # (Auto) 0.2 0-0.8 10 ^3/uL Basophils # (Auto) 0 0-0.2 10 ^3/uL Nucleated Red Blood Cells 0.3 % Prothrombin Time 16.2 H 9.3-11.8 sec Prothrombin Time INR 1.60 H 0.9-1.15 Activated Partial Thromboplast Time 39.0 H 24.5-34.5 SEC Sodium Level 143 136-145 mmol/L Potassium Level 3.9 3.5-5.1 mmol/L Chloride Level 110 H 98-107 mmol/L Carbon Dioxide Level 25 20-31 mmol/L Anion Gap 8 5-15 Blood Urea Nitrogen 8 L 9-23 mg/dL Creatinine 0.59 0.550-1.02 mg/dL Glomerular Filtration Rate Calc 111 >90 mL/min BUN/Creatinine Ratio 13.6 10.0-20.0 Serum Glucose 64 L 74-106 mg/dL Calcium Level 7.8 L 8.7-10.4 mg/dL Magnesium Level 1.9 1.6-2.6 mg/dL Total Bilirubin 8.1 H 0.2-1.0 mg/dL Direct Bilirubin 6.2 H <0.3 mg/dL Aspartate Amino Transferase (AST) 664 H 13-40 U/L Alanine Aminotransferase (ALT) 385 H 7-40 U/L Alkaline Phosphatase 465 H 46-116 U/L Ammonia 31 11-32 umol/L Total Protein 6.2 5.7-8.2 g/dL Albumin 2.1 L 3.2-4.8 g/dL Tumor Marker Alpha Fetoprotein 27.7 H 0.0-6.4 ng/mL CA 19-9 Antigen 147 H 0-35 U/mL Anti-Nuclear Antibody Screen Negative Negative Anti-Nuclear Antibody Comment Comment . MARIA VICTORIA-1 Antibody <0.2 0.0-0.9 AI SS-A/Ro Antibody <0.2 0.0-0.9 AI SS-B/La Antibody <0.2 0.0-0.9 AI Sm Antibody <0.2 0.0-0.9 AI COMPUTER TECHNOLOGY TRAINER Antibody <0.2 0.0-0.9 AI Scl-70 (Scleroderma) Antibody <0.2 0.0-0.9 AI Anti-Double Strand DNA Antibody 1 0-9 IU/mL Chromatin Antibody <0.2 0.0-0.9 AI Centromere B Antibody <0.2 0.0-0.9 AI Lipase 37 12-53 U/L Carcinoembryonic Antigen 3.03 <=5.0 ng/mL Plasma/Serum Blood Alcohol < 3.0 <10 mg/dL Test 01/11/25 06:09 01/10/25 15:53 01/10/25 13:31 Range/Units Differential Total Cells Counted 100.0 100 Neutrophils % (Manual) 54 37.0-80.0 Band Neutrophils % (Manual) 1 Lymphocytes % (Manual) 23 10.0-50.0 Monocytes % (Manual) 19 H 0-12 Eosinophils % (Manual) 3 0-7 Basophils % (Manual) 0 0.0-2.0 Metamyelocytes % (manual) 0 Myelocytes % (Manual) 0 Promyelocytes % (Manual) 0 Blast Cells % (Manual) 0 Reactive Lymphocytes 0 Platelet Estimate Decreased Target Cells Moderate Iron Level 122 50-170 ug/dL Total Iron Binding Capacity 196 L 250-425 ug/dL Percent Iron Saturation 62.2 H 15-50 % Ferritin 692.9 H 10-291 ng/mL Vitamin B12 Level 1022 H 211-911 pg/mL Vitamin D 25-Hydroxy 27.9 L 30.0-100 ng/mL Folic Acid 15.99 >5.38 ng/mL Thyroid Stimulating Hormone (TSH) 2.82 0.55-4.78 uIU/mL Acetaminophen Level < 2.0 L 10.0-20.0 UG/ML Hepatitis A IgM Antibody Negative Hepatitis B Surface Antigen Negative Negative Hepatitis B Core IgM Antibody Negative Negative Hepatitis C Antibody Negative Negative Urine Color Dark-yellow Yellow Urine Clarity Turbid H Clear Urine pH 6.0 5.0-9.0 Urine Specific [place] 1.017 1.001-1.035 Urine Protein Negative Negative Urine Ketones Negative Negative Urine Blood Negative Negative /uL Urine Nitrite Negative Negative Urine Bilirubin 2+ H Negative Urine Urobilinogen 6 Negative mg/dL Urine Leukocyte Esterase 1+ Negative /uL Urine RBC 3 0 - 4 /hpf Urine Microscopic WBC 11 H 0-5 /HPF Urine Squamous Epithelial Cells Mod <5 /hpf Urine Bacteria Few H None Seen /hpf Urine Mucus Few None Seen Urine Glucose Normal Normal mg/dL Urine Opiates Screen Neg NEGATIVE Urine Fentanyl Screen Neg NEGATIVE Urine Barbiturates Screen Neg NEGATIVE Urine Phencyclidine Screen Neg NEGATIVE Urine Amphetamines Screen Neg NEGATIVE Urine Benzodiazepines Screen Neg NEGATIVE Urine Cocaine Screen Neg NEGATIVE Urine Cannabinoids Screen Neg NEGATIVE Hemoglobin A1c 4.6 <5.7 % A1C Microbiology Date/Time Source Procedure Growth Status 01/10/25 15:53 Voided Urine Urine Culture - Preliminary Resulted Examination: GENERAL:Normal, Any Other System: Problem List/Assessment/Plan Problems: (1) Liver mass Assessment and Plan image reports, notes and labs reviewed with Dr. Reynoso Per Dr. Reynoso patient will need higher level of care recommend liver biopsy by IR Plan discussed with Plan discussed with: Other (Dr. reynoso ) Visit Coding Surgery Date of Service if different f: Jan 12, 2025 Billing Provider: SEEMA REYNOSO MD Surgery Visit Codes: 22695 - INP CONSULT <20 MIN SANJIV TONY NP Jan 12, 2025 12:50
--- NOTE | 2025-01-12 15:48 | DVHPN2 ---
Progress Note Date Seen: Jan 12, 2025 Resident Creating Document: HINA SUNSHINE RESIDENT Medical Necessity Reason Pt with a Central, PICC or Fol: No Subjective Review of Systems 49-year-old female presented to the ER with a chief complaint of flank pain and symptoms of cystitis for the past 4 days. She denies nausea, vomiting, diarrhea or constipation at this time. Also reports hematuria. The patient does not follow up with a physician or does not take any medications. No medical history reported. Denies fever but reported chills. Patient was admitted for pyelonephritis. GI consultation for possible cirrhosis/suspected malignancy 01/11-Patient seen and examined. Underwent MRCP which showed cirrhotic morphology, TTE right lesions within the liver measuring 2.3 cm 0.9 cm potential neoplasm. Pancreatic and peripancreatic edema. Gallbladder distention and pericholecystic gallbladder wall edema. Small volume ascites. Bilirubin 8.1. 01/12-patient seen and examined. Reports abdominal pain. Right upper quadrant pain. Triana sign positive. Objective vital signs Vital Sign Date Time Temp Pulse Resp B/P (MAP) Pulse Ox O2 Delivery O2 Flow Rate FiO2 01/12/25 09:00 98.6 64 20 93/62 (72) 93 98.6 01/12/25 08:20 Room Air* 0 21 Total Intake and Output 01/11/25 01/11/25 01/12/25 15:00 23:00 07:00 Intake Total 50 ml 1520 ml 500 ml Balance 50 ml 1520 ml 500 ml medications Current Medications Medications Dose Ordered Sig/Sunitha Route Start Time Stop Time Status Last Admin Dose Admin Ketorolac Tromethamine 15 mg Q6HPRN PRN IV 01/10/25 16:30 01/15/25 16:29 Ceftriaxone Sodium/Dextrose 50 ml @ 50 mls/hr DAILY IV 01/11/25 08:15 01/12/25 09:52 50 MLS/HR Pantoprazole Sodium 40 mg DAILY@0600 PO 01/12/25 06:00 01/12/25 06:15 40 MG Lactulose 30 ml DAILY PRN PO 01/11/25 16:15 Diagnostic Test (Pha) 1 strip ACHS 01/11/25 22:00 01/12/25 12:03 1 STRIP Dextrose 50 ml UD PRN IV 01/11/25 17:15 Metronidazole 100 ml @ 100 mls/hr Q8HR IV 01/12/25 22:00 Examination Patient lying in bed, in no acute distress General: Well-built, afebrile, palor, scleral icterus noted, mucosa moist Cardiovascular: Regular S1 and S2. No murmurs, gallops or rubs. No JVD elevation. No pedal edema Respiratory: Normal B/L air entry on room air. Clear lung sounds on auscultation Abdomen: Soft, right upper quadrant pain and tenderness, Triana positive, nondistended, normoactive bowel sounds, no rebound tenderness, no organomegaly, no masses Genitourinary: Deferred MSK/skin: Mobilizes 4 limbs. Skin is dry and warm Neurological: No motor, no sensitive deficits, normal speech. Pupils are isocoric and reactive. Psych/Mental Status: A/Ox3 laboratory and microbiology Laboratory Tests 01/12/25 05:03 Test 01/12/25 05:03 Range/Units Serum Glucose 64 L 74-106 mg/dL Microbiology Date/Time Source Procedure Growth Status 01/10/25 15:53 Voided Urine Urine Culture - Preliminary Resulted Labs and/or images reviewed: Labs reviewed by me, Image(s) reviewed by me Problem List/Assessment/Plan Problem List/Assessment/Plan Unspecified cirrhosis-meld score 19 Hepatic mass likely cavernous hemangioma Cholestatic liver disease Rule out acute hepatitis Acute cystitis Anemia likely hemodilution Severe protein calorie malnutrition Vitamin-D deficiency Iron panel shows normal iron, low TIBC, high% saturation, high ferritin Lipase 37 Plan: Recommendation: Dr. Henson: Kong positive, surgery consultation appreciated. MRCP shows: The common bile duct is overall poorly characterized but does not appear to be dilated measuring approximately 3 mm. Similarly, the pancreatic duct measures approximately 2 mm. MRI abdomen shows the hepatic masses likely cavernous hemangioma right hepatic lobe. Conservative management recommended at this time. Ursodiol b.i.d.. Patient would benefit from liver biopsy, ASHLIE screen negative. Elevated CA 19 9 and AFP.antimitochondrial antibody test send out Serum alcohol, Tylenol level was unremarkable Continue Protonix 40 mg daily We will continue to follow up Plan discussed with patient in which all questions have been answered Case discussed with Dr. Henson Plan discussed with: Patient HINA SUNSHINE RESIDENT Jan 12, 2025 15:48
--- NOTE | 2025-01-12 15:58 | DVHPNRES ---
Progress Note Date Seen: Jan 12, 2025 Resident Creating Document: KHLOE TAY RESIDENT Medical Necessity Reason Pt with a Central, PICC or Fol: No Subjective Review of Systems This is a 49-year-old female with no PMHx and not taking any chronic medications, who presents with 2 weeks of bilateral flank pain, progressive in intensity, 10/10, intermittent, radiating to the right lower abdomen, associated with nausea, dysuria and red urine. She reports fever that started yesterday and chills today. Patient also complained of unintentional weight loss and anorexia for a while. She denies nausea, vomiting, abdominal pain, chest pain, cough, SOB, vaginal bleeding, or discharge. She had a UTI in August 2024. Initial lab reviewed revealed bilirubin 8.5, AST of 642, ALT 380, alkaline phosphatase 449, UA with bilirubin 2+, leukocyte esterase 1+, WBC 11, nitrites negative. UDS negative A1c 4.6 iron 122, ferritin 692, % saturation 62.2. Ultrasound of the liver revealed-Cirrhotic liver morphology with 2 cm right hepatic lobe echogenic lesion. .Mild nonspecific gallbladder wall thickening. Renal ultrasound Normal sonographic appearance of the kidneys. No hydronephrosis. PMH-none PSH- none Allergy- NGT Personal History/ Social History- denies smoking/alcoholism/drug abuse, lives at home with the family ROS Cardiovascular- deny acute chest pain or shortness of breath or cough or palpitation Respiratory denies cough or short of breath or wheezing Gastrointestinal- denies any rectal bleeding or vomiting Musculoskeletal-denies acute joint swelling or tenderness or redness Neurological- denies acute dysarthria, dysphagia, change in vision Psychiatry- denies depression or SI or HI Skin- denies acute rash or purpura Patient was seen today at bedside, labs and chart reviewed Alpha fetoprotein 27.7 CA 19.9 - 147 Patient with a up trending transaminitis Ammonia 31 ASHLIE negative, negative for Yarelis 1 antibody/SSA/Ro antibody, SSB/LA antibody/ Mcneil antibody/Scl 70 scleroderma antibody/double-stranded DNA antibody/chromatin antibody/centromere B antibody Negative for hepatitis-C/hepatitis-B/hepatitis-C MRI of the abdomen revealed- Cavernous hemangioma in the right hepatic lobe. Small volume ascites with mesenteric congestion.Nodular contour of the liver correlate for chronic liver disease versus underlying cirrhosis. Patient was seen by surgery for possible cholecystectomy for suspected cholecystitis, recommended to transfer to higher level of care Social service consult for transfer to higher level of care in place Provider spoke to patient's daughter and sister and explained the patient's current medical condition and discussed plan of care. Gastroenterology on board, recommended ursodiol and lactulose Objective vital signs Vital Sign Date Time Temp Pulse Resp B/P (MAP) Pulse Ox O2 Delivery O2 Flow Rate FiO2 01/12/25 09:00 98.6 64 20 93/62 (72) 93 98.6 01/12/25 08:20 Room Air* 0 21 Total Intake and Output 01/11/25 01/11/25 01/12/25 15:00 23:00 07:00 Intake Total 50 ml 1520 ml 500 ml Balance 50 ml 1520 ml 500 ml medications Current Medications Medications Dose Ordered Sig/Sunitha Route Start Time Stop Time Status Last Admin Dose Admin Ketorolac Tromethamine 15 mg Q6HPRN PRN IV 01/10/25 16:30 01/15/25 16:29 Ceftriaxone Sodium/Dextrose 50 ml @ 50 mls/hr DAILY IV 01/11/25 08:15 01/12/25 09:52 50 MLS/HR Pantoprazole Sodium 40 mg DAILY@0600 PO 01/12/25 06:00 01/12/25 06:15 40 MG Lactulose 30 ml DAILY PRN PO 01/11/25 16:15 Diagnostic Test (Pha) 1 strip ACHS 01/11/25 22:00 01/12/25 12:03 1 STRIP Dextrose 50 ml UD PRN IV 01/11/25 17:15 Metronidazole 100 ml @ 100 mls/hr Q8HR IV 01/12/25 22:00 Examination General examination- jaundice present HEENT- PEERLA, no acute nasal discharge Cardiovascular- S1-S2 audible, rate and rhythm regular, no murmur Respiratory- CTAB, no wheeze or rhonchi Gastrointestinal-minimal abdominal wall tenderness+, bowel sound+. Nondistended Musculoskeletal-no acute joint swelling or tenderness or redness Lower extremity- no leg edema Neurological- cranial nerves intact, no acute dysarthria or dysphagia Psychiatry- denies depression or SI or HI Skin- no acute rash or purpura laboratory and microbiology Laboratory Tests 01/12/25 05:03 Test 01/12/25 05:03 Range/Units Serum Glucose 64 L 74-106 mg/dL Microbiology Date/Time Source Procedure Growth Status 01/10/25 15:53 Voided Urine Urine Culture - Preliminary Resulted Problem List/Assessment/Plan Problem List/Assessment/Plan # Assessment and plan # UTI -urine culture no growth so far -continue ceftriaxone as prescribed # acute hepatic failure likely cirrhosis of liver/suspected malignancy of liver # cirrhosis of liver # suspected malignancy of the liver # transaminitis # ascites # suspected portal hypertension -bilirubin 8.5, AST of 642, ALT 380, alkaline phosphatase 449 -INR 1.56 -MELD SCORE 19, estimated 3 month mortality 19.6 -ultrasound of the liver which revealed suspected Cirrhotic liver morphology with 2 cm right hepatic lobe echogenic lesion -Ordered acute hepatitis panel, PT APTT, mitochondrial antibody, ASHLIE, serum acetaminophen level, serum iron, serum ferritin, serum alpha fetoprotein, CA 19.9, CEA, MRCP -MRCP revealed- lesions within the liver measuring 2.3 cm, 0.9 cm concerning for potential neoplasm. Pancreatic and peripancreatic edema which could represent sequela of pancreatitis. Gallbladder distention and pericholecystic/ gallbladder wall edema. No definitive choledocholithiasis identified. Common bile duct suboptimally characterized but appears normal in caliber. Correlate for cholecystitis. Small volume ascites fluid. Small bowel wall edema/ thickening which can be secondary to portal hypertension, enteritis, inflammatory disease. -Alpha fetoprotein 27.7 -CA 19.9 - 147 -ASHLIE negative, negative for Yarelis 1 antibody/SSA/Ro antibody, SSB/LA antibody/ Mcneil antibody/Scl 70 scleroderma antibody/double-stranded DNA antibody/chromatin antibody/centromere B antibody -Negative for hepatitis-C/hepatitis-B/hepatitis-C -MRI of the abdomen revealed- Cavernous hemangioma in the right hepatic lobe. Small volume ascites with mesenteric congestion.Nodular contour of the liver correlate for chronic liver disease versus underlying cirrhosis. -Gastroenterology recommendation reviewed and appreciated -continue current conservative management -surgery recommendation reviewed and appreciated # suspected cholecystitis --MRCP revealed- lesions within the liver measuring 2.3 cm, 0.9 cm concerning for potential neoplasm. Pancreatic and peripancreatic edema which could represent sequela of pancreatitis. Gallbladder distention and pericholecystic/ gallbladder wall edema. No definitive choledocholithiasis identified. Common bile duct suboptimally characterized but appears normal in caliber. Correlate for cholecystitis. -Patient was seen by surgery for possible cholecystectomy for suspected cholecystitis, recommended to transfer to higher level of care Social service consult for transfer to higher level of care in place Goals of care, Code status Full code PUD prophylaxis: Pantoprazole DVT prophylaxis: SCD Plan discussed with Dr. Luther , nursing staff, daughter, sister Total time spent on patient evaluation, chart review, assessment and plan, discussion discussion >35 minutes Plan discussed with: Patient, Daughter, Other (RN, SISTER) My Orders My Orders Orders - KHLOE TAY Procedure Category Date Status Time Pantoprazole Tablet PHA 01/12/25 In Process (Protonix Tablet) 06:00 Lactulose Oral PHA 01/11/25 In Process 16:15 Mri Abdomen W And [facility] MRI 01/11/25 Resulted 16:34 Visit Coding STANDARD RES Billing Provider: SONDRA LUTHER MD Date of Service if different f: Jan 12, 2025 Common Visit Codes: 32907-NIUGEALOIM INP/OBS CARE(HIGH) KHLOE TAY RESIDENT Jan 12, 2025 15:58
[2025-01-12 16:33] VITALS: BP 114/71; PULSE 97; RESP 18; TEMP 98.4; O2SAT 99
[2025-01-12] MEDS: LACTULOSE 20Gm/30ML SOLN PO SCH (17:09)
[2025-01-12] MEDS: URSODIOL 300 MG CAP PO SCH (17:10)
--- NOTE | 2025-01-12 17:17 | DVHDSRES ---
Discharge Summary Date of Admission Resident Creating Document: KHLOE TAY RESIDENT Jan 10, 2025 at 16:18 Date of Discharge: Jan 12, 2025 Admitting Diagnosis Acute hepatic failure UTI Labs/Diagnostic Data: Laboratory Results Test 01/12/25 11:45 01/12/25 05:03 01/11/25 12:53 01/11/25 09:55 POC Glucose 130 mg/dl (70-106) White Blood Count 6.4 10^3/uL (4.4-10.8) Red Blood Count 3.50 10^6/uL (4.0-5.20) Hemoglobin 10.9 g/dL (12.2-16.2) Hematocrit 31.7 % (36.0-46.0) Mean Corpuscular Volume 90.5 fL (80.0-100.0) Mean Corpuscular Hemoglobin 31.2 pg (28.0-32.0) Mean Corpuscular Hemoglobin Concent 34.5 g/dL (32.0-36.0) Red Cell Distribution Width 17.2 % (11.8-14.3) Platelet Count 129 10^3/uL (140-450) Mean Platelet Volume 10.0 fL (6.9-10.8) Neutrophils (%) (Auto) 40.0 % (37.0-80.0) Lymphocytes (%) (Auto) 40.9 % (10.0-50.0) Monocytes (%) (Auto) 15.3 % (0.0-12.0) Eosinophils (%) (Auto) 3.2 % (0.0-7.0) Basophils (%) (Auto) 0.6 % (0.0-2.0) Neutrophils # (Auto) 2.6 10 ^3/uL (1.6-8.6) Lymphocytes # (Auto) 2.6 10 ^3/uL (0.4-5.4) Monocytes # (Auto) 1.0 10 ^3/uL (0-1.3) Eosinophils # (Auto) 0.2 10 ^3/uL (0-0.8) Basophils # (Auto) 0 10 ^3/uL (0-0.2) Nucleated Red Blood Cells 0.3 % Prothrombin Time 16.2 sec (9.3-11.8) Prothrombin Time INR 1.60 (0.9-1.15) Activated Partial Thromboplast Time 39.0 SEC (24.5-34.5) Sodium Level 143 mmol/L (136-145) Potassium Level 3.9 mmol/L (3.5-5.1) Chloride Level 110 mmol/L (98-107) Carbon Dioxide Level 25 mmol/L (20-31) Anion Gap 8 (5-15) Blood Urea Nitrogen 8 mg/dL (9-23) Creatinine 0.59 mg/dL (0.550-1.02) Glomerular Filtration Rate Calc 111 mL/min (>90) BUN/Creatinine Ratio 13.6 (10.0-20.0) Serum Glucose 64 mg/dL (74-106) Calcium Level 7.8 mg/dL (8.7-10.4) Magnesium Level 1.9 mg/dL (1.6-2.6) Total Bilirubin 8.1 mg/dL (0.2-1.0) Direct Bilirubin 6.2 mg/dL (<0.3) Aspartate Amino Transferase (AST) 664 U/L (13-40) Alanine Aminotransferase (ALT) 385 U/L (7-40) Alkaline Phosphatase 465 U/L (46-116) Ammonia 31 umol/L (11-32) Total Protein 6.2 g/dL (5.7-8.2) Albumin 2.1 g/dL (3.2-4.8) Tumor Marker Alpha Fetoprotein 27.7 ng/mL (0.0-6.4) CA 19-9 Antigen 147 U/mL (0-35) Anti-Nuclear Antibody Screen Negative (Negative) Anti-Nuclear Antibody Comment Comment (.) YARELIS-1 Antibody <0.2 AI (0.0-0.9) SS-A/Ro Antibody <0.2 AI (0.0-0.9) SS-B/La Antibody <0.2 AI (0.0-0.9) Sm Antibody <0.2 AI (0.0-0.9) RESIN SHAVER Antibody <0.2 AI (0.0-0.9) Scl-70 (Scleroderma) Antibody <0.2 AI (0.0-0.9) Anti-Double Strand DNA Antibody 1 IU/mL (0-9) Chromatin Antibody <0.2 AI (0.0-0.9) Centromere B Antibody <0.2 AI (0.0-0.9) Lipase 37 U/L (12-53) Carcinoembryonic Antigen 3.03 ng/mL (<=5.0) Plasma/Serum Blood Alcohol < 3.0 mg/dL (<10) Test 01/11/25 06:09 01/10/25 15:53 01/10/25 13:31 Differential Total Cells Counted 100.0 (100) Neutrophils % (Manual) 54 (37.0-80.0) Band Neutrophils % (Manual) 1 Lymphocytes % (Manual) 23 (10.0-50.0) Monocytes % (Manual) 19 (0-12) Eosinophils % (Manual) 3 (0-7) Basophils % (Manual) 0 (0.0-2.0) Metamyelocytes % (manual) 0 Myelocytes % (Manual) 0 Promyelocytes % (Manual) 0 Blast Cells % (Manual) 0 Reactive Lymphocytes 0 Platelet Estimate Decreased Target Cells Moderate Iron Level 122 ug/dL (50-170) Total Iron Binding Capacity 196 ug/dL (250-425) Percent Iron Saturation 62.2 % (15-50) Ferritin 692.9 ng/mL (10-291) Vitamin B12 Level 1022 pg/mL (211-911) Vitamin D 25-Hydroxy 27.9 ng/mL (30.0-100) Folic Acid 15.99 ng/mL (>5.38) Thyroid Stimulating Hormone (TSH) 2.82 uIU/mL (0.55-4.78) Acetaminophen Level < 2.0 UG/ML (10.0-20.0) Hepatitis A IgM Antibody Negative Hepatitis B Surface Antigen Negative (Negative) Hepatitis B Core IgM Antibody Negative (Negative) Hepatitis C Antibody Negative (Negative) Urine Color Dark-yellow (Yellow) Urine Clarity Turbid (Clear) Urine pH 6.0 (5.0-9.0) Urine Specific [place] 1.017 (1.001-1.035) Urine Protein Negative (Negative) Urine Ketones Negative (Negative) Urine Blood Negative /uL (Negative) Urine Nitrite Negative (Negative) Urine Bilirubin 2+ (Negative) Urine Urobilinogen 6 mg/dL (Negative) Urine Leukocyte Esterase 1+ /uL (Negative) Urine RBC 3 /hpf (0 - 4) Urine Microscopic WBC 11 /HPF (0-5) Urine Squamous Epithelial Cells Mod /hpf (<5) Urine Bacteria Few /hpf (None Seen) Urine Mucus Few (None Seen) Urine Glucose Normal mg/dL (Normal) Urine Opiates Screen Neg (NEGATIVE) Urine Fentanyl Screen Neg (NEGATIVE) Urine Barbiturates Screen Neg (NEGATIVE) Urine Phencyclidine Screen Neg (NEGATIVE) Urine Amphetamines Screen Neg (NEGATIVE) Urine Benzodiazepines Screen Neg (NEGATIVE) Urine Cocaine Screen Neg (NEGATIVE) Urine Cannabinoids Screen Neg (NEGATIVE) Hemoglobin A1c 4.6 % A1C (<5.7) Other Laboratory Tests 01/12/25 05:03 Brief Hx & Hospital Course: This is a 49-year-old female with no PMHx and not taking any chronic medications, who presents with 2 weeks of bilateral flank pain, progressive in intensity, 10/10, intermittent, radiating to the right lower abdomen, associated with nausea, dysuria and red urine. She reports fever that started yesterday and chills today. Patient also complained of unintentional weight loss and anorexia for a while. She denies nausea, vomiting, abdominal pain, chest pain, cough, SOB, vaginal bleeding, or discharge. She had a UTI in August 2024. Initial lab reviewed revealed bilirubin 8.5, AST of 642, ALT 380, alkaline phosphatase 449, UA with bilirubin 2+, leukocyte esterase 1+, WBC 11, nitrites negative. UDS negative A1c 4.6 iron 122, ferritin 692, % saturation 62.2. Alpha fetoprotein 27.7, CA 19.9 - 147, Ammonia 31. ASHLIE negative, negative for Yarelis 1 antibody/SSA/Ro antibody, SSB/LA antibody/ Mcneil antibody/Scl 70 scleroderma antibody/double- stranded DNA antibody/chromatin antibody/centromere B antibody. Ultrasound of the liver revealed-Cirrhotic liver morphology with 2 cm right hepatic lobe echogenic lesion. .Mild nonspecific gallbladder wall thickening. Renal ultrasound Normal sonographic appearance of the kidneys. No hydronephrosis.-MRCP revealed- lesions within the liver measuring 2.3 cm, 0.9 cm concerning for potential neoplasm. Pancreatic and peripancreatic edema which could represent sequela of pancreatitis. Gallbladder distention and pericholecystic/ gallbladder wall edema. No definitive choledocholithiasis identified. Common bile duct suboptimally characterized but appears normal in caliber. Correlate for cholecystitis. Small volume ascites fluid. Small bowel wall edema/ thickening which can be secondary to portal hypertension, enteritis, inflammatory disease.MRI of the abdomen revealed- Cavernous hemangioma in the right hepatic lobe. Small volume ascites with mesenteric congestion.Nodular contour of the liver correlate for chronic liver disease versus underlying cirrhosis. Patient was seen by Gastroenterology, recommended for conservative management so far. Patient was also seen by surgery, recommended to transfer to higher level of care for possible cholecystectomy. Patient is hemodynamically stable to be transferred. ROS Cardiovascular- deny acute chest pain or shortness of breath or cough or palpitation Respiratory denies cough or short of breath or wheezing Gastrointestinal- denies any rectal bleeding or vomiting Musculoskeletal-denies acute joint swelling or tenderness or redness Neurological- denies acute dysarthria, dysphagia, change in vision Psychiatry- denies depression or SI or HI Skin- denies acute rash or purpura On of care discussed with Dr. Samuel Operations or Procedures [place] [id number] Ph: [phone] DIAGNOSTIC IMAGING Diagnostic Imaging Report : [id number] Signed PATIENT: MADDISON CALLECCT: [id number] UNIT: [id number] : 1975 LOC: OVERFLOW ROOM / BED: [address] [place] [address] AGE / SEX: 49 / F ADM STATUS: ADM IN SERVICE 5076 ORDERING PHYSICIAN: DILLON MURPHY RESIDENT PROCEDURE(s): KIDUS - KIDNEY REASON: rule out hydronephrosis ORDER NUMBER(s): [id number], ACCESSION NUMBER(s): [id number] INDICATION: rule out hydronephrosis TECHNIQUE: Multiple real-time sonographic images of the kidneys and bladder were obtained. COMPARISON: None FINDINGS: The right kidney measures 9.8 cm in length, which is normal in size. There is normal echogenicity of the right kidney. No hydronephrosis. The left kidney measures 9.9 cm in length, which is normal in size. There is normal echogenicity of the left kidney. No hydronephrosis. No large intraluminal masses are seen in the bladder. Prior to voiding the bladder volume measures volume 58 cc. Bladder wall is 1.5 mm Right and left ureteral jets visualized in the bladder Postvoid bladder volume not received IMPRESSION: 1. Normal sonographic appearance of the kidneys. No hydronephrosis. 2. Right kidney measures 9.8 cm. 3. Left kidney measures 9.9 cm. ATED BY: CHRISTIANO RUTHERFORD Jr., DO DICTATED DATE/TIME: 01/10/251929 SIGNED BY: CHRISTIANO RUTHERFORD Jr., DO SIGNED DATE/TIME: 01/10/251929 CC: [place] [id number] Ph: [phone] DIAGNOSTIC IMAGING Diagnostic Imaging Report : [id number] Signed PATIENT: MADDISON CALLECCT: [id number] UNIT: [id number] : 1975 LOC: [facility] ROOM / BED: [facility] / AGE / SEX: 49 / F ADM STATUS: ADM IN SERVICE 7 ORDERING PHYSICIAN: KHLOE TAY RESIDENT PROCEDURE(s): LIVUS - LIVER REASON: Cirrhosis of liver/hepatitis ORDER NUMBER(s): [id number], ACCESSION NUMBER(s): [id number] CLINICAL HISTORY: Cirrhosis of liver/hepatitis TECHNIQUE: Transabdominal sonogram was performed of the right upper quadrant. COMPARISON: None FINDINGS: The liver is heterogeneous in echogenicity and nodular in contour. There is a 2 cm echogenic lesion within the right hepatic lobe. No intrahepatic biliary ductal dilatation is present. The liver measures 12.5 cm. The gallbladder demonstrates mild nonspecific wall thickening. There is no stones or sludge. Sonographic triana's sign is reported to be absent. The common bile duct is normal in caliber, measuring 4 mm. The partially visualized pancreas is grossly unremarkable. The right kidney is normal in echogenicity and measures 11 cm in length. There is no evidence for hydronephrosis or calculi. IMPRESSION: Cirrhotic liver morphology with 2 cm right hepatic lobe echogenic lesion. Recommend liver MRI or CT with and without IV contrast for further evaluation. Mild nonspecific gallbladder wall thickening. ATED BY: MAGALI BYNUM MD DICTATED DATE/TIME: 01/11/25913 SIGNED BY: MAGALI BYNUM MD SIGNED DATE/TIME: 01/11/25913 CC: [place] [address] [facility] [id number] Ph: [phone] DIAGNOSTIC IMAGING Diagnostic Imaging Report : [id number] Signed PATIENT: MADDISON CALLECCT: [id number] UNIT: [id number] : 1975 LOC: [facility] ROOM / BED: [facility] / B AGE / SEX: 49 / F ADM STATUS: ADM IN SERVICE 1411 ORDERING PHYSICIAN: KHLOE TAY RESIDENT PROCEDURE(s): MRCP - MRCP MRI REASON: TROPONIN JAUNDICE/HEPATITIS/CIRRHOSIS ORDER NUMBER(s): [id number], ACCESSION NUMBER(s): [id number] PROCEDURE: MRI MRCP MRI Indication: TROPONIN JAUNDICE/HEPATITIS/CIRRHOSIS COMPARISON: 01/11/2025 TECHNIQUE: Multiplanar multisequence images of the abdomen are obtained per MRCP protocol. FINDINGS: Adrenal glands unremarkable. The spleen measures 11.5 cm AP. Peripancreatic, pancreatic interstitial edema. Gallbladder distention. Pericholecystic, gallbladder wall edema. The common bile duct is overall poorly characterized but does not appear to be dilated measuring approximately 3 mm. Similarly, the pancreatic duct measures approximately 2 mm. The liver appears cirrhotic morphology. Posterior right hepatic lobe T2 bright lesion/ mass measuring 2.3 cm. Hepatic dome T2 bright lesion/ mass measuring 9 mm. Kidneys demonstrate no hydronephrosis. Stomach partially distended. Small volume of ascites fluid. Small bowel wall edema. IMPRESSION: Cirrhotic morphology appearance liver. There are 2 T2 bright lesions within the liver measuring 2.3 cm, 0.9 cm concerning for potential neoplasm. Recommend multiphasic MRI abdomen with and without contrast. Pancreatic and peripancreatic edema which could represent sequela of pancreatitis. Correlate with appropriate lab values. Gallbladder distention and pericholecystic/ gallbladder wall edema. No definitive choledocholithiasis identified. Common bile duct suboptimally characterized but appears normal in caliber. Correlate for cholecystitis. Small volume ascites fluid. Small bowel wall edema/ thickening which can be secondary to portal hypertension, enteritis, inflammatory disease. Other findings as described Recommend MRI abdomen with and without contrast. ATED BY: ASYA PEREZ MD DICTATED DATE/TIME: 01/11/25 1604 SIGNED BY: ASYA PEREZ MD SIGNED DATE/TIME: 01/11/25 1604 CC: [place] [address] Ph: [phone] DIAGNOSTIC IMAGING Diagnostic Imaging Report : [id number] Signed PATIENT: MADDISON CALLECCT: [id number] UNIT: [id number] : 1975 LOC: [facility] ROOM / BED: [facility] / B AGE / SEX: 49 / F ADM STATUS: ADM IN SERVICE 1634 ORDERING PHYSICIAN: KHLOE TAY RESIDENT PROCEDURE(s): MRABWWO - MRI ABDOMEN W AND WO REASON: ORDER NUMBER(s): [id number], ACCESSION NUMBER(s): [id number] EXAM: MRI MRI ABDOMEN W AND WO HISTORY: SUSPECTED MALIGNANCY OF THE ABDOMEN, PORTAL HYPERTENSION COMPARISON: MRI MRCP MRI on DOS: 01/11/25 TECHNIQUE: Multiplanar, multisequence imaging of the abdomen was performed with and without contrast. FINDINGS: [LOWER CHEST]: Trace bilateral pleural fluid. [LIVER]: Nodular contour of the liver correlate for chronic liver disease versus underlying cirrhosis. T2 hyperintense light bulb bright lesion measuring 2.2 x 1.9 cm in the right hepatic lobe. Upon postcontrast evaluation, peripheral discontinuous nodular enhancement and overall imaging findings compatible with cavernous hemangioma. Progressive fill-in on delayed images. Overall no suspicious arterial enhancing and washing out lesion. Inconspicuous background possible lace-like fibrosis. [SPLEEN]: Small volume ascites in the perisplenic space with mesenteric congestion. [PANCREAS]: The pancreas is normal in appearance without focal lesions. Normal pancreatic duct size. [GALLBLADDER AND DUCTS]: Gallbladder intramural edema. No visualized cholelithiasis. No biliary dilation. The cystic duct, right and left hepatic ducts, common hepatic duct, and common bile ducts are unremarkable. [ADRENAL GLANDS]: Unremarkable. [KIDNEYS]: Normal enhancement without suspicious lesions or hydronephrosis. [VISUALIZED BOWEL]: Grossly unremarkable. [VASCULATURE]: Mesenteric congestion. [LYMPHADENOPATHY]: No evidence for lymphadenopathy. [ASCITES]: Small volume ascites in the perihepatic and perisplenic spaces. [MUSCULOSKELETAL]: Bone marrow signal is normal. [OTHER]: None IMPRESSION: 1. No suspicious arterially enhancing and washout lesions. 2. Cavernous hemangioma in the right hepatic lobe. 3. Small volume ascites with mesenteric congestion. 4. Nodular contour of the liver correlate for chronic liver disease versus underlying cirrhosis. 5. LI-RADS 1 -negative 6. Recommendation: Consider continued surveillance ATED BY: CK FERNANDO MD DICTATED DATE/TIME: 01/11/252099 SIGNED BY: CK FERNANDO MD SIGNED DATE/TIME: 01/11/252099 CC: Patient Name: MADDISON CALLE Acct: [id number] Room: [facility] /Bed: A Attending Physician: KHLOE TAY RESIDENT Loc: [facility] Unit: [id number] CONSULTATION REPORT . ................................................................................ ............................................................................... Consultation - Surgical Date Seen: Jan 12, 2025 Referring Physician Reason for Consultation cholelithiasis, liver mass Allergies and medications Allergies: Coded Allergies: NO KNOWN ALLERGIES (Unverified , 01/10/25) Review of systems Review of Systems: Not Done Examination Vital signs Vital Signs Date Time Temp Pulse Resp B/P (MAP) Pulse Ox O2 Delivery O2 Flow Rate FiO2 01/12/25 09:00 98.6 64 20 93/62 (72) 93 98.6 01/12/25 08:20 Room Air* 0 21 Medications Current Medications Medications (Trade) Dose Ordered Sig/Sunitha Route PRN Reason Start Time Stop Time Status Last Admin Ceftriaxone Sodium 50 ml @ 100 mls/hr DAILY@09 IV 01/11/25 16:30 01/11/25 08:14 DC Pantoprazole Sodium (Protonix Tablet) 40 mg DAILY@0600 PO 01/12/25 06:00 01/12/25 06:15 Lactulose 30 ml DAILY PRN PO FOR CONSTIPATION 01/11/25 16:15 Diagnostic Test (Pha) (Accu-Chek Comfort Curve T) 1 strip ACHS 01/11/25 22:00 01/12/25 12:03 Dextrose 50 ml UD PRN IV Blood Sugar LESS THAN 60 01/11/25 17:15 Metronidazole 100 ml @ 100 mls/hr Q8HR IV 01/12/25 22:00 Laboratory Labs Test 01/12/25 11:45 01/12/25 05:03 01/11/25 12:53 01/11/25 09:55 Range/Units POC Glucose 130 H 70-106 mg/dl White Blood Count 6.4 4.4-10.8 10^3/uL Red Blood Count 3.50 L 4.0-5.20 10^6/uL Hemoglobin 10.9 L 12.2-16.2 g/dL Hematocrit 31.7 L 36.0-46.0 % Mean Corpuscular Volume 90.5 80.0-100.0 fL Mean Corpuscular Hemoglobin 31.2 28.0-32.0 pg Mean Corpuscular Hemoglobin Concent 34.5 32.0-36.0 g/dL Red Cell Distribution Width 17.2 H 11.8-14.3 % Platelet Count 129 L 140-450 10^3/uL Mean Platelet Volume 10.0 6.9-10.8 fL Neutrophils (%) (Auto) 40.0 37.0-80.0 % Lymphocytes (%) (Auto) 40.9 10.0-50.0 % Monocytes (%) (Auto) 15.3 H 0.0-12.0 % Eosinophils (%) (Auto) 3.2 0.0-7.0 % Basophils (%) (Auto) 0.6 0.0-2.0 % Neutrophils # (Auto) 2.6 1.6-8.6 10 ^3/uL Lymphocytes # (Auto) 2.6 0.4-5.4 10 ^3/uL Monocytes # (Auto) 1.0 0-1.3 10 ^3/uL Eosinophils # (Auto) 0.2 0-0.8 10 ^3/uL Basophils # (Auto) 0 0-0.2 10 ^3/uL Nucleated Red Blood Cells 0.3 % Prothrombin Time 16.2 H 9.3-11.8 sec Prothrombin Time INR 1.60 H 0.9-1.15 Activated Partial Thromboplast Time 39.0 H 24.5-34.5 SEC Sodium Level 143 136-145 mmol/L Potassium Level 3.9 3.5-5.1 mmol/L Chloride Level 110 H 98-107 mmol/L Carbon Dioxide Level 25 20-31 mmol/L Anion Gap 8 5-15 Blood Urea Nitrogen 8 L 9-23 mg/dL Creatinine 0.59 0.550-1.02 mg/dL Glomerular Filtration Rate Calc 111 >90 mL/min BUN/Creatinine Ratio 13.6 10.0-20.0 Serum Glucose 64 L 74-106 mg/dL Calcium Level 7.8 L 8.7-10.4 mg/dL Magnesium Level 1.9 1.6-2.6 mg/dL Total Bilirubin 8.1 H 0.2-1.0 mg/dL Direct Bilirubin 6.2 H <0.3 mg/dL Aspartate Amino Transferase (AST) 664 H 13-40 U/L Alanine Aminotransferase (ALT) 385 H 7-40 U/L Alkaline Phosphatase 465 H 46-116 U/L Ammonia 31 11-32 umol/L Total Protein 6.2 5.7-8.2 g/dL Albumin 2.1 L 3.2-4.8 g/dL Tumor Marker Alpha Fetoprotein 27.7 H 0.0-6.4 ng/mL CA 19-9 Antigen 147 H 0-35 U/mL Anti-Nuclear Antibody Screen Negative Negative Anti-Nuclear Antibody Comment Comment . YARELIS-1 Antibody <0.2 0.0-0.9 AI SS-A/Ro Antibody <0.2 0.0-0.9 AI SS-B/La Antibody <0.2 0.0-0.9 AI Sm Antibody <0.2 0.0-0.9 AI RESIN SHAVER Antibody <0.2 0.0-0.9 AI Scl-70 (Scleroderma) Antibody <0.2 0.0-0.9 AI Anti-Double Strand DNA Antibody 1 0-9 IU/mL Chromatin Antibody <0.2 0.0-0.9 AI Centromere B Antibody <0.2 0.0-0.9 AI Lipase 37 12-53 U/L Carcinoembryonic Antigen 3.03 <=5.0 ng/mL Plasma/Serum Blood Alcohol < 3.0 <10 mg/dL Test 01/11/25 06:09 01/10/25 15:53 01/10/25 13:31 Range/Units Differential Total Cells Counted 100.0 100 Neutrophils % (Manual) 54 37.0-80.0 Band Neutrophils % (Manual) 1 Lymphocytes % (Manual) 23 10.0-50.0 Monocytes % (Manual) 19 H 0-12 Eosinophils % (Manual) 3 0-7 Basophils % (Manual) 0 0.0-2.0 Metamyelocytes % (manual) 0 Myelocytes % (Manual) 0 Promyelocytes % (Manual) 0 Blast Cells % (Manual) 0 Reactive Lymphocytes 0 Platelet Estimate Decreased Target Cells Moderate Iron Level 122 50-170 ug/dL Total Iron Binding Capacity 196 L 250-425 ug/dL Percent Iron Saturation 62.2 H 15-50 % Ferritin 692.9 H 10-291 ng/mL Vitamin B12 Level 1022 H 211-911 pg/mL Vitamin D 25-Hydroxy 27.9 L 30.0-100 ng/mL Folic Acid 15.99 >5.38 ng/mL Thyroid Stimulating Hormone (TSH) 2.82 0.55-4.78 uIU/mL Acetaminophen Level < 2.0 L 10.0-20.0 UG/ML Hepatitis A IgM Antibody Negative Hepatitis B Surface Antigen Negative Negative Hepatitis B Core IgM Antibody Negative Negative Hepatitis C Antibody Negative Negative Urine Color Dark-yellow Yellow Urine Clarity Turbid H Clear Urine pH 6.0 5.0-9.0 Urine Specific [place] 1.017 1.001-1.035 Urine Protein Negative Negative Urine Ketones Negative Negative Urine Blood Negative Negative /uL Urine Nitrite Negative Negative Urine Bilirubin 2+ H Negative Urine Urobilinogen 6 Negative mg/dL Urine Leukocyte Esterase 1+ Negative /uL Urine RBC 3 0 - 4 /hpf Urine Microscopic WBC 11 H 0-5 /HPF Urine Squamous Epithelial Cells Mod <5 /hpf Urine Bacteria Few H None Seen /hpf Urine Mucus Few None Seen Urine Glucose Normal Normal mg/dL Urine Opiates Screen Neg NEGATIVE Urine Fentanyl Screen Neg NEGATIVE Urine Barbiturates Screen Neg NEGATIVE Urine Phencyclidine Screen Neg NEGATIVE Urine Amphetamines Screen Neg NEGATIVE Urine Benzodiazepines Screen Neg NEGATIVE Urine Cocaine Screen Neg NEGATIVE Urine Cannabinoids Screen Neg NEGATIVE Hemoglobin A1c 4.6 <5.7 % A1C Microbiology Date/Time Source Procedure Growth Status 01/10/25 15:53 Voided Urine Urine Culture - Preliminary Resulted Examination: GENERAL:Normal, Any Other System: Problem List/Assessment/Plan Problems: (1) Liver mass Assessment and Plan image reports, notes and labs reviewed with Dr. Reynoso Per Dr. Reynoso patient will need higher level of care recommend liver biopsy by IR Plan discussed with Plan discussed with: Other (Dr. reynoso ) Visit Coding Surgery Date of Service if different f: Jan 12, 2025 Billing Provider: SEEMA REYNOSO MD Surgery Visit Codes: 23863 - INP CONSULT <20 MIN SANJIV TONY NP Jan 12, 2025 12:50 DICTATED BY:SANJIV TONY NP DICTATED DATE/TIME:01/12/25 1250 ELECTRONICALLY SIGNED BY:SANJIV TONY NP 01/12/25 1250 ELECTRONICALLY CO-SIGNED BY: Patient: MADDISON CALLE Acct: [id number] : 1975 Loc: [facility] Age/Sex: 49/F [id number] Progress Note Date Seen: Jan 12, 2025 Resident Creating Document: HINA SUNSHINE Medical Necessity Reason Pt with a Central, PICC or Fol: No Subjective Review of Systems 49-year-old female presented to the ER with a chief complaint of flank pain and symptoms of cystitis for the past 4 days. She denies nausea, vomiting, diarrhea or constipation at this time. Also reports hematuria. The patient does not follow up with a physician or does not take any medications. No medical history reported. Denies fever but reported chills. Patient was admitted for pyelonephritis. GI consultation for possible cirrhosis/suspected malignancy 01/11-Patient seen and examined. Underwent MRCP which showed cirrhotic morphology, TTE right lesions within the liver measuring 2.3 cm 0.9 cm potential neoplasm. Pancreatic and peripancreatic edema. Gallbladder distention and pericholecystic gallbladder wall edema. Small volume ascites. Bilirubin 8.1. 01/12-patient seen and examined. Reports abdominal pain. Right upper quadrant pain. Triana sign positive. Objective vital signs Vital Sign Date Time Temp Pulse Resp B/P (MAP) Pulse Ox O2 Delivery O2 Flow Rate FiO2 12/3/25 09:00 98.6 64 20 93/62 (72) 93 98.6 01/12/25 08:20 Room Air* 0 21 Total Intake and Output 01/11/25 01/11/25 01/12/25 15:00 23:00 07:00 Intake Total 50 ml 1520 ml 500 ml Balance 50 ml 1520 ml 500 ml medications Current Medications Medications Dose Ordered Sig/Sunitha Route Start Time Stop Time Status Last Admin Dose Admin Ketorolac Tromethamine 15 mg Q6HPRN PRN IV 01/10/25 16:30 01/15/25 16:29 Ceftriaxone Sodium/Dextrose 50 ml @ 50 mls/hr DAILY IV 01/11/25 08:15 01/12/25 09:52 50 MLS/HR Pantoprazole Sodium 40 mg DAILY@0600 PO 01/12/25 06:00 01/12/25 06:15 40 MG Lactulose 30 ml DAILY PRN PO 01/11/25 16:15 Diagnostic Test (Pha) 1 strip ACHS 01/11/25 22:00 01/12/25 12:03 1 STRIP Dextrose 50 ml UD PRN IV 01/11/25 17:15 Metronidazole 100 ml @ 100 mls/hr Q8HR IV 01/12/25 22:00 Examination Patient lying in bed, in no acute distress General: Well-built, afebrile, palor, scleral icterus noted, mucosa moist Cardiovascular: Regular S1 and S2. No murmurs, gallops or rubs. No JVD elevation. No pedal edema Respiratory: Normal B/L air entry on room air. Clear lung sounds on auscultation Abdomen: Soft, right upper quadrant pain and tenderness, Triana positive, nondistended, normoactive bowel sounds, no rebound tenderness, no organomegaly, no masses Genitourinary: Deferred MSK/skin: Mobilizes 4 limbs. Skin is dry and warm Neurological: No motor, no sensitive deficits, normal speech. Pupils are isocoric and reactive. Psych/Mental Status: A/Ox3 laboratory and microbiology Laboratory Tests 01/12/25 05:03 Test 01/12/25 05:03 Range/Units Serum Glucose 64 L 74-106 mg/dL Microbiology Date/Time Source Procedure Growth Status 01/10/25 15:53 Voided Urine Urine Culture - Preliminary Resulted Labs and/or images reviewed: Labs reviewed by me, Image(s) reviewed by me Problem List/Assessment/Plan Problem List/Assessment/Plan Unspecified cirrhosis-meld score 19 Hepatic mass likely cavernous hemangioma Cholestatic liver disease Rule out acute hepatitis Acute cystitis Anemia likely hemodilution Severe protein calorie malnutrition Vitamin-D deficiency Iron panel shows normal iron, low TIBC, high% saturation, high ferritin Lipase 37 Plan: Recommendation: Dr. Henson: Triana positive, surgery consultation appreciated. MRCP shows: The common bile duct is overall poorly characterized but does not appear to be dilated measuring approximately 3 mm. Similarly, the pancreatic duct measures approximately 2 mm. MRI abdomen shows the hepatic masses likely cavernous hemangioma right hepatic lobe. Conservative management recommended at this time. Ursodiol b.i.d.. Patient would benefit from liver biopsy, ASHLIE screen negative. Elevated CA 19 9 and AFP.antimitochondrial antibody test send out Serum alcohol, Tylenol level was unremarkable Continue Protonix 40 mg daily We will continue to follow up Plan discussed with patient in which all questions have been answered Case discussed with Dr. Henson Plan discussed with: Patient HINA SUNSHINE Jan 12, 2025 15:48 E/M VISIT PERFORMED BY: TRANSCRIBED BY:HINA SUNSHINE TRANSCRIBED DATE/TIME:01/12/25 1548 ELECTRONICALLY SIGNED BY:HINA SUNSHINE 01/12/25 1548 ELECTRONICALLY CO-SIGNED BY: Condition at Discharge: Stable Final Diagnosis/Problems List # acute hepatic failure likely cirrhosis of liver # suspected cholecystitis # liver hemangioma # cirrhosis of liver # suspected malignancy of the liver # transaminitis # ascites # suspected portal hypertension # UTI Discharge Disposition: Acute Care Facility Discharge Instruct/Medications Diet: Regular Activity: No Restrictions, As Tolerated Follow Up/Referral: As prescribed Medications: As prescribed Discharge Statement: "Patient was advised to return to the ER or call 911 if any headaches, dizziness, shortness of breath, chest pain, abdominal pain, bleeding, fevers, or worsening of medical condition. Patient was counseled about treatment plan, medications, possible side effects, patientverbalized understanding. All questions were answered to the best of my ability. This discharge took greater then 30 minutes in planning, reviewing documentation, counseling the patient, and discussing with other team members." ASSESSMENT ASSESSMENT Assessment Visit Coding STANDARD RES Billing Provider: SONDRA SAMUEL MD Date of Service if different f: Jan 12, 2025 Common Visit Codes: 60075-ABU/OBS DISCH DAY >30min KHLOE TAY RESIDENT Jan 12, 2025 17:17
[2025-01-12 21:00] VITALS: BP 112/75; PULSE 93; RESP 18; TEMP 98.8; O2SAT 98
[2025-01-13 05:00] VITALS: BP 100/70; PULSE 80; RESP 18; TEMP 98.7; O2SAT 97
[2025-01-13 05:39] LABS: Anion Gap 8 (5-15); BUN/Creatinine Ratio 10.9 (10.0-20.0); Carbon Dioxide 25 mmol/L (20-31); Hematocrit 31.4 % (36.0-46.0); Hemoglobin 10.7 g/dL (12.2-16.2); INR 1.56 (0.9-1.15); Magnesium 1.8 mg/dL (1.6-2.6); Mean Corpuscular Hemoglobin 30.5 pg (28.0-32.0); Mean Corpuscular Volume 89.3 fL (80.0-100.0); Nucleated Red Blood Cells % 0.1 %; Partial Thromboplastin Time 38.2 SEC (24.5-34.5); Potassium 3.7 mmol/L (3.5-5.1); Prothrombin Time 15.8 sec (9.3-11.8); Sodium 141 mmol/L (136-145); Total Protein 6.3 g/dL (5.7-8.2)
[2025-01-13 05:41] LABS: Chloride 108 mmol/L (98-107); Glucose 68 mg/dL (74-106)
[2025-01-13 05:42] LABS: Alanine Aminotransferase 363 U/L (7-40); Albumin 2.0 g/dL (3.2-4.8); Alkaline Phosphatase 430 U/L (46-116); Bilirubin, Total 8.4 mg/dL (0.2-1.0); Blood Urea Nitrogen 7 mg/dL (9-23); Calcium 8.0 mg/dL (8.7-10.4)
[2025-01-13 08:40] VITALS: BP 99/67; PULSE 121; RESP 18; TEMP 97.8; O2SAT 97
--- NOTE | 2025-01-13 10:56 | DVHPN2 ---
Progress Note Date Seen: Jan 13, 2025 Resident Creating Document: HINA SUNSHINE RESIDENT Medical Necessity Reason Pt with a Central, PICC or Fol: No Subjective Review of Systems 49-year-old female presented to the ER with a chief complaint of flank pain and symptoms of cystitis for the past 4 days. She denies nausea, vomiting, diarrhea or constipation at this time. Also reports hematuria. The patient does not follow up with a physician or does not take any medications. No medical history reported. Denies fever but reported chills. Patient was admitted for pyelonephritis. GI consultation for possible cirrhosis/suspected malignancy 01/11-Patient seen and examined. Underwent MRCP which showed cirrhotic morphology, TTE right lesions within the liver measuring 2.3 cm 0.9 cm potential neoplasm. Pancreatic and peripancreatic edema. Gallbladder distention and pericholecystic gallbladder wall edema. Small volume ascites. Bilirubin 8.1. 01/12-patient seen and examined. Reports abdominal pain. Right upper quadrant pain. Triana sign positive. 01/13 - denies abdominal pain. Objective vital signs Vital Sign Date Time Temp Pulse Resp B/P (MAP) Pulse Ox O2 Delivery O2 Flow Rate FiO2 01/13/25 08:40 97.8 121 18 99/67 (78) 97 97.8 01/13/25 08:00 Room Air* 0 21 Total Intake and Output 01/12/25 01/12/25 01/13/25 15:00 23:00 07:00 Intake Total 150 ml 800 ml 150 ml Output Total 800 ml Balance 150 ml 0 ml 150 ml medications Current Medications Medications Dose Ordered Sig/Sunitha Route Start Time Stop Time Status Last Admin Dose Admin Ketorolac Tromethamine 15 mg Q6HPRN PRN IV 01/10/25 16:30 01/15/25 16:29 Ceftriaxone Sodium/Dextrose 50 ml @ 50 mls/hr DAILY IV 01/11/25 08:15 01/13/25 09:36 50 MLS/HR Pantoprazole Sodium 40 mg DAILY@0600 PO 01/12/25 06:00 01/13/25 05:38 40 MG Diagnostic Test (Pha) 1 strip ACHS 01/11/25 22:00 01/13/25 06:25 1 STRIP Dextrose 50 ml UD PRN IV 01/11/25 17:15 Metronidazole 100 ml @ 100 mls/hr Q8HR IV 01/12/25 22:00 01/13/25 05:38 100 MLS/HR Lactulose 30 ml DAILY PO 01/12/25 16:00 01/12/25 17:09 30 ML Ursodiol 300 mg BID PO 01/12/25 16:00 01/13/25 09:36 300 MG Examination Patient lying in bed, in no acute distress General: Well-built, afebrile, palor, scleral icterus noted, mucosa moist Cardiovascular: Regular S1 and S2. No murmurs, gallops or rubs. No JVD elevation. No pedal edema Respiratory: Normal B/L air entry on room air. Clear lung sounds on auscultation Abdomen: Soft, right upper quadrant pain and tenderness, Triana positive, nondistended, normoactive bowel sounds, no rebound tenderness, no organomegaly, no masses Genitourinary: Deferred MSK/skin: Mobilizes 4 limbs. Skin is dry and warm Neurological: No motor, no sensitive deficits, normal speech. Pupils are isocoric and reactive. Psych/Mental Status: A/Ox3 laboratory and microbiology Laboratory Tests 01/13/25 04:49 Test 01/13/25 04:49 Range/Units Serum Glucose 68 L 74-106 mg/dL Microbiology Date/Time Source Procedure Growth Status 01/10/25 15:53 Voided Urine Urine Culture - Final Complete Labs and/or images reviewed: Labs reviewed by me, Image(s) reviewed by me Problem List/Assessment/Plan Problem List/Assessment/Plan Unspecified cirrhosis-meld score 19 Hepatic mass likely cavernous hemangioma Cholestatic liver disease Rule out acute hepatitis Acute cystitis Anemia likely hemodilution Severe protein calorie malnutrition Vitamin-D deficiency Iron panel shows normal iron, low TIBC, high% saturation, high ferritin Lipase 37 Plan: Recommendation: Dr. Henson: Patient is on regular diet. Reports feeling fine. No obstruction noted on MRCP. MRI abdomen shows masses cavernous hemangioma. Stable to be discharged from GI standpoint. Follow up outpatient with GI Services for outpatient colonoscopy and surgery within next 2 weeks. Follow up with higher level of care as outpatient. MRCP shows: The common bile duct is overall poorly characterized but does not appear to be dilated measuring approximately 3 mm. Similarly, the pancreatic duct measures approximately 2 mm. MRI abdomen shows the hepatic masses likely cavernous hemangioma right hepatic lobe. Conservative management recommended at this time. Ursodiol b.i.d.. Patient would benefit from liver biopsy, ASHLIE screen negative. Elevated CA 19 9 and AFP.antimitochondrial antibody test send out Serum alcohol, Tylenol level was unremarkable Continue Protonix 40 mg daily We will continue to follow up Plan discussed with patient in which all questions have been answered Case discussed with Dr. Henson Plan discussed with: Patient My Orders My Orders Orders - HINA SUNSHINE Procedure Category Date Status Time Lactulose Oral PHA 01/12/25 In Process 16:00 Ursodiol (Actigall) PHA 01/12/25 In Process 16:00 HINA SUNSHINE Jan 13, 2025 10:56
[2025-01-13 12:52] VITALS: BP 96/64; PULSE 109; RESP 16; TEMP 97.6; O2SAT 98
--- NOTE | 2025-01-13 16:28 | DVHPNRES ---
Progress Note Date Seen: Jan 13, 2025 Resident Creating Document: KHLOE TAY RESIDENT Medical Necessity Reason Pt with a Central, PICC or Fol: No Subjective Review of Systems This is a 49-year-old female with no PMHx and not taking any chronic medications, who presents with 2 weeks of bilateral flank pain, progressive in intensity, 10/10, intermittent, radiating to the right lower abdomen, associated with nausea, dysuria and red urine. She reports fever that started yesterday and chills today. Patient also complained of unintentional weight loss and anorexia for a while. She denies nausea, vomiting, abdominal pain, chest pain, cough, SOB, vaginal bleeding, or discharge. She had a UTI in August 2024. Initial lab reviewed revealed bilirubin 8.5, AST of 642, ALT 380, alkaline phosphatase 449, UA with bilirubin 2+, leukocyte esterase 1+, WBC 11, nitrites negative. UDS negative A1c 4.6 iron 122, ferritin 692, % saturation 62.2. Ultrasound of the liver revealed-Cirrhotic liver morphology with 2 cm right hepatic lobe echogenic lesion. .Mild nonspecific gallbladder wall thickening. Renal ultrasound Normal sonographic appearance of the kidneys. No hydronephrosis. PMH-none PSH- none Allergy- NGT Personal History/ Social History- denies smoking/alcoholism/drug abuse, lives at home with the family ROS Cardiovascular- deny acute chest pain or shortness of breath or cough or palpitation Respiratory denies cough or short of breath or wheezing Gastrointestinal- denies any rectal bleeding or vomiting Musculoskeletal-denies acute joint swelling or tenderness or redness Neurological- denies acute dysarthria, dysphagia, change in vision Psychiatry- denies depression or SI or HI Skin- denies acute rash or purpura Patient was seen today at bedside, labs and chart reviewed Patient reports feeling okay, no acute complaint Surgery regarding for higher level to transfer for possible cholecystectomy, patient reported she any symptoms to discuss with her family liver making her mind Objective vital signs Vital Sign Date Time Temp Pulse Resp B/P (MAP) Pulse Ox O2 Delivery O2 Flow Rate FiO2 01/13/25 12:52 97.6 109 16 96/64 (75) 98 97.6 01/13/25 08:00 Room Air* 0 21 Total Intake and Output 01/12/25 01/12/25 01/13/25 15:00 23:00 07:00 Intake Total 150 ml 800 ml 150 ml Output Total 800 ml Balance 150 ml 0 ml 150 ml medications Current Medications Medications Dose Ordered Sig/Sunitha Route Start Time Stop Time Status Last Admin Dose Admin Ketorolac Tromethamine 15 mg Q6HPRN PRN IV 01/10/25 16:30 01/15/25 16:29 Ceftriaxone Sodium/Dextrose 50 ml @ 50 mls/hr DAILY IV 01/11/25 08:15 01/13/25 09:36 50 MLS/HR Pantoprazole Sodium 40 mg DAILY@0600 PO 01/12/25 06:00 01/13/25 05:38 40 MG Diagnostic Test (Pha) 1 strip ACHS 01/11/25 22:00 01/13/25 06:25 1 STRIP Dextrose 50 ml UD PRN IV 01/11/25 17:15 Metronidazole 100 ml @ 100 mls/hr Q8HR IV 01/12/25 22:00 01/13/25 14:07 100 MLS/HR Lactulose 30 ml DAILY PO 01/12/25 16:00 01/12/25 17:09 30 ML Ursodiol 300 mg BID PO 01/12/25 16:00 01/13/25 09:36 300 MG Examination General examination- jaundice present HEENT- PEERLA, no acute nasal discharge Cardiovascular- S1-S2 audible, rate and rhythm regular, no murmur Respiratory- CTAB, no wheeze or rhonchi Gastrointestinal-minimal abdominal wall tenderness+, bowel sound+. Nondistended, positive brown Musculoskeletal-no acute joint swelling or tenderness or redness Lower extremity- no leg edema Neurological- cranial nerves intact, no acute dysarthria or dysphagia Psychiatry- denies depression or SI or HI Skin- no acute rash or purpura laboratory and microbiology Laboratory Tests 01/13/25 04:49 Test 01/13/25 04:49 Range/Units Serum Glucose 68 L 74-106 mg/dL Microbiology Date/Time Source Procedure Growth Status 01/10/25 15:53 Voided Urine Urine Culture - Final Complete Problem List/Assessment/Plan Problem List/Assessment/Plan # Cholecystitis -MRCP revealed- lesions within the liver measuring 2.3 cm, 0.9 cm concerning for potential neoplasm. Pancreatic and peripancreatic edema which could represent sequela of pancreatitis. Gallbladder distention and pericholecystic/ gallbladder wall edema. No definitive choledocholithiasis identified. Common bile duct suboptimally characterized but appears normal in caliber. Correlate for cholecystitis. -Patient was seen by surgery for possible cholecystectomy for suspected cholecystitis, recommended to transfer to higher level of care -Social service consult for transfer to higher level of care in place -patient taking time to talk to her family before she makes the per minute # UTI -urine culture no growth so far -continue ceftriaxone as prescribed # acute hepatic failure likely cirrhosis of liver/suspected malignancy of liver # cirrhosis of liver # suspected malignancy of the liver # transaminitis # ascites # suspected portal hypertension -bilirubin 8.5, AST of 642, ALT 380, alkaline phosphatase 449 -INR 1.56 -MELD SCORE 19, estimated 3 month mortality 19.6 -ultrasound of the liver which revealed suspected Cirrhotic liver morphology with 2 cm right hepatic lobe echogenic lesion -Ordered acute hepatitis panel, PT APTT, mitochondrial antibody, ASHLIE, serum acetaminophen level, serum iron, serum ferritin, serum alpha fetoprotein, CA 19.9, CEA, MRCP -MRCP revealed- lesions within the liver measuring 2.3 cm, 0.9 cm concerning for potential neoplasm. Pancreatic and peripancreatic edema which could represent sequela of pancreatitis. Gallbladder distention and pericholecystic/ gallbladder wall edema. No definitive choledocholithiasis identified. Common bile duct suboptimally characterized but appears normal in caliber. Correlate for cholecystitis. Small volume ascites fluid. Small bowel wall edema/ thickening which can be secondary to portal hypertension, enteritis, inflammatory disease. -Alpha fetoprotein 27.7 -CA 19.9 - 147 -ASHLIE negative, negative for Yarelis 1 antibody/SSA/Ro antibody, SSB/LA antibody/ Mcneil antibody/Scl 70 scleroderma antibody/double-stranded DNA antibody/chromatin antibody/centromere B antibody -Negative for hepatitis-C/hepatitis-B/hepatitis-C -MRI of the abdomen revealed- Cavernous hemangioma in the right hepatic lobe. Small volume ascites with mesenteric congestion.Nodular contour of the liver correlate for chronic liver disease versus underlying cirrhosis. -Gastroenterology recommendation reviewed and appreciated -continue current conservative management -surgery recommendation reviewed and appreciated -surgery recommended for transferred to higher level of care --patient taking time to talk to her family before she makes the per minute Goals of care, Code status Full code PUD prophylaxis: Pantoprazole DVT prophylaxis: SCD Plan discussed with Dr. Midou , nursing staff, daughter, sister Total time spent on patient evaluation, chart review, assessment and plan, discussion discussion >35 minutes Plan discussed with: Patient, Other (Nurses) My Orders My Orders Orders - KHLOE TAY Procedure Category Date Status Time * Marketing Compliance Manager CONS 01/12/25 Transmitted Consult Imaging Transfer ORDERS 01/12/25 Transmitted Request 17:16 Discharge DISCHARGE 01/12/25 Transmitted 17:23 Visit Coding STANDARD RES Billing Provider: SONDRA SAMUEL MD Date of Service if different f: Jan 13, 2025 Common Visit Codes: [id number] INP/OBS CARE(HIGH) KHLOE TAY RESIDENT Jan 13, 2025 16:28 MARIELENA ANG RESIDENT Jan 13, 2025 17:10
[2025-01-13 17:13] VITALS: BP 126/82; PULSE 103; RESP 20; TEMP 98; O2SAT 98
[2025-01-13 21:00] VITALS: BP 123/70; PULSE 91; RESP 18; TEMP 97.2; O2SAT 100
[2025-01-14 01:00] VITALS: BP 102/53; PULSE 77; RESP 18; TEMP 97.4; O2SAT 98
[2025-01-14 05:00] VITALS: BP 99/65; PULSE 91; RESP 19; TEMP 97.3; O2SAT 100
[2025-01-14] MEDS: KETOROLAC TROMETH 30 MG/ML 1ML VIAL IV PRN (05:14)
[2025-01-14 05:26] LABS: Hematocrit 31.8 % (36.0-46.0); Hemoglobin 11.0 g/dL (12.2-16.2); Mean Corpuscular Hemoglobin 31.1 pg (28.0-32.0); Mean Corpuscular Volume 89.7 fL (80.0-100.0); Nucleated Red Blood Cells % 0.0 %
[2025-01-14 05:38] LABS: INR 1.52 (0.9-1.15); Partial Thromboplastin Time 37.6 SEC (24.5-34.5); Prothrombin Time 15.5 sec (9.3-11.8)
[2025-01-14 05:48] LABS: Anion Gap 7 (5-15); BUN/Creatinine Ratio 10.0 (10.0-20.0); Carbon Dioxide 25 mmol/L (20-31); Chloride 106 mmol/L (98-107); Glucose 97 mg/dL (74-106); Magnesium 1.9 mg/dL (1.6-2.6); Potassium 4.9 mmol/L (3.5-5.1); Sodium 138 mmol/L (136-145); Total Protein 6.6 g/dL (5.7-8.2)
[2025-01-14 05:53] LABS: Blood Urea Nitrogen 7 mg/dL (9-23)
[2025-01-14 05:54] LABS: Alanine Aminotransferase 337 U/L (7-40); Albumin 2.1 g/dL (3.2-4.8); Alkaline Phosphatase 430 U/L (46-116); Bilirubin, Total 8.2 mg/dL (0.2-1.0); Calcium 7.8 mg/dL (8.7-10.4)
[2025-01-14 09:00] VITALS: BP 101/70; PULSE 92; RESP 16; TEMP 98.1; O2SAT 98
--- NOTE | 2025-01-14 11:41 | DVHPN2 ---
Progress Note Date Seen: Jan 14, 2025 Resident Creating Document: HINA SUNSHINE RESIDENT Medical Necessity Reason Pt with a Central, PICC or Fol: No Subjective Review of Systems 49-year-old female presented to the ER with a chief complaint of flank pain and symptoms of cystitis for the past 4 days. She denies nausea, vomiting, diarrhea or constipation at this time. Also reports hematuria. The patient does not follow up with a physician or does not take any medications. No medical history reported. Denies fever but reported chills. Patient was admitted for pyelonephritis. GI consultation for possible cirrhosis/suspected malignancy 01/11-Patient seen and examined. Underwent MRCP which showed cirrhotic morphology, TTE right lesions within the liver measuring 2.3 cm 0.9 cm potential neoplasm. Pancreatic and peripancreatic edema. Gallbladder distention and pericholecystic gallbladder wall edema. Small volume ascites. Bilirubin 8.1. 01/12-patient seen and examined. Reports abdominal pain. Right upper quadrant pain. Triana sign positive. 01/13 - denies abdominal pain. 01/14 , tolerating diet, no abdominal pain. Objective vital signs Vital Sign Date Time Temp Pulse Resp B/P (MAP) Pulse Ox O2 Delivery O2 Flow Rate FiO2 01/14/25 09:00 98.1 92 16 101/70 (80) 98 98.1 01/14/25 08:00 Room Air* 0 21 Total Intake and Output 01/13/25 01/13/25 01/14/25 14:59 22:59 06:59 Intake Total 1700 ml 300 ml Balance 1700 ml 300 ml medications Current Medications Medications Dose Ordered Sig/Sunitha Route Start Time Stop Time Status Last Admin Dose Admin Ketorolac Tromethamine 15 mg Q6HPRN PRN IV 01/10/25 16:30 01/15/25 16:29 01/14/25 05:14 15 MG Ceftriaxone Sodium/Dextrose 50 ml @ 50 mls/hr DAILY IV 01/11/25 08:15 01/14/25 09:51 50 MLS/HR Pantoprazole Sodium 40 mg DAILY@0600 PO 01/12/25 06:00 01/14/25 05:09 40 MG Diagnostic Test (Pha) 1 strip ACHS 01/11/25 22:00 01/14/25 06:48 1 STRIP Dextrose 50 ml UD PRN IV 01/11/25 17:15 Metronidazole 100 ml @ 100 mls/hr Q8HR IV 01/12/25 22:00 01/14/25 05:10 100 MLS/HR Lactulose 30 ml DAILY PO 01/12/25 16:00 01/14/25 09:51 30 ML Ursodiol 300 mg BID PO 01/12/25 16:00 01/14/25 09:51 300 MG Examination Patient lying in bed, in no acute distress General: Well-built, afebrile, palor, scleral icterus noted, mucosa moist Cardiovascular: Regular S1 and S2. No murmurs, gallops or rubs. No JVD elevation. No pedal edema Respiratory: Normal B/L air entry on room air. Clear lung sounds on auscultation Abdomen: Soft, right upper quadrant pain and tenderness, Triana positive, nondistended, normoactive bowel sounds, no rebound tenderness, no organomegaly, no masses Genitourinary: Deferred MSK/skin: Mobilizes 4 limbs. Skin is dry and warm Neurological: No motor, no sensitive deficits, normal speech. Pupils are isocoric and reactive. Psych/Mental Status: A/Ox3 laboratory and microbiology Laboratory Tests 01/14/25 04:44 Test 01/14/25 04:44 Range/Units Serum Glucose 97 74-106 mg/dL Microbiology Date/Time Source Procedure Growth Status 01/10/25 15:53 Voided Urine Urine Culture - Final Complete Labs and/or images reviewed: Labs reviewed by me, Image(s) reviewed by me Problem List/Assessment/Plan Problem List/Assessment/Plan Unspecified cirrhosis-meld score 19 Hepatic mass likely cavernous hemangioma Cholestatic liver disease Rule out acute hepatitis Acute cystitis Anemia likely hemodilution Severe protein calorie malnutrition Vitamin-D deficiency Iron panel shows normal iron, low TIBC, high% saturation, high ferritin Lipase 37 Plan: Recommendation: Dr. Henson: Patient is on regular diet. Reports feeling fine. No obstruction noted on MRCP. MRI abdomen shows masses cavernous hemangioma. Stable to be discharged from GI standpoint. Follow up outpatient with GI Services for outpatient colonoscopy and surgery within next 2 weeks. Follow up with higher level of care as outpatient. MRCP shows: The common bile duct is overall poorly characterized but does not appear to be dilated measuring approximately 3 mm. Similarly, the pancreatic duct measures approximately 2 mm. MRI abdomen shows the hepatic masses likely cavernous hemangioma right hepatic lobe. Conservative management recommended at this time. Ursodiol b.i.d.. Patient would benefit from liver biopsy, ASHLIE screen negative. Elevated CA 19 9 and AFP.antimitochondrial antibody test send out Serum alcohol, Tylenol level was unremarkable Continue Protonix 40 mg daily We will continue to follow up Plan discussed with patient in which all questions have been answered Case discussed with Dr. Henson Plan discussed with: Patient, Daughter (At bedside) HINA SUNSHINE RESIDENT Jan 14, 2025 11:41
[2025-01-14] MEDS ORDERED: LACT10SO3 PO (12:37)
[2025-01-14] MEDS ORDERED: PANT40T PO (12:37)
[2025-01-14] MEDS ORDERED: URSO300C2 PO (12:37)
[2025-01-14] MEDS ORDERED: CIPR500T4 PO (12:39)
[2025-01-14] MEDS ORDERED: METR-344 PO (12:39)
[2025-01-14] MEDS: MAGNESIUM SULFATE 1GM/100ML 100 ML IV ONE (12:40)
[2025-01-14 13:41] VITALS: TEMP 36.7
--- NOTE | 2025-01-14 15:11 | DVHDSRES ---
Discharge Summary Date of Admission Resident Creating Document: HINA SUNSHINE RESIDENT Jan 10, 2025 at 16:18 Date of Discharge: Jan 14, 2025 Admitting Diagnosis UTI Acute hepatic failure Labs/Diagnostic Data: Laboratory Results Test 01/14/25 06:40 01/14/25 04:44 01/12/25 05:03 01/11/25 12:53 POC Glucose 80 mg/dl (70-106) White Blood Count 4.9 10^3/uL (4.4-10.8) Red Blood Count 3.54 10^6/uL (4.0-5.20) Hemoglobin 11.0 g/dL (12.2-16.2) Hematocrit 31.8 % (36.0-46.0) Mean Corpuscular Volume 89.7 fL (80.0-100.0) Mean Corpuscular Hemoglobin 31.1 pg (28.0-32.0) Mean Corpuscular Hemoglobin Concent 34.7 g/dL (32.0-36.0) Red Cell Distribution Width 17.5 % (11.8-14.3) Platelet Count 137 10^3/uL (140-450) Mean Platelet Volume 9.7 fL (6.9-10.8) Neutrophils (%) (Auto) 47.7 % (37.0-80.0) Lymphocytes (%) (Auto) 33.2 % (10.0-50.0) Monocytes (%) (Auto) 13.4 % (0.0-12.0) Eosinophils (%) (Auto) 4.6 % (0.0-7.0) Basophils (%) (Auto) 1.1 % (0.0-2.0) Neutrophils # (Auto) 2.3 10 ^3/uL (1.6-8.6) Lymphocytes # (Auto) 1.6 10 ^3/uL (0.4-5.4) Monocytes # (Auto) 0.6 10 ^3/uL (0-1.3) Eosinophils # (Auto) 0.2 10 ^3/uL (0-0.8) Basophils # (Auto) 0.1 10 ^3/uL (0-0.2) Nucleated Red Blood Cells 0.0 % Prothrombin Time 15.5 sec (9.3-11.8) Prothrombin Time INR 1.52 (0.9-1.15) Activated Partial Thromboplast Time 37.6 SEC (24.5-34.5) Sodium Level 138 mmol/L (136-145) Potassium Level 4.9 mmol/L (3.5-5.1) Chloride Level 106 mmol/L (98-107) Carbon Dioxide Level 25 mmol/L (20-31) Anion Gap 7 (5-15) Blood Urea Nitrogen 7 mg/dL (9-23) Creatinine 0.70 mg/dL (0.550-1.02) Glomerular Filtration Rate Calc 107 mL/min (>90) BUN/Creatinine Ratio 10.0 (10.0-20.0) Serum Glucose 97 mg/dL (74-106) Calcium Level 7.8 mg/dL (8.7-10.4) Magnesium Level 1.9 mg/dL (1.6-2.6) Total Bilirubin 8.2 mg/dL (0.2-1.0) Aspartate Amino Transferase (AST) 552 U/L (13-40) Alanine Aminotransferase (ALT) 337 U/L (7-40) Alkaline Phosphatase 430 U/L (46-116) Total Protein 6.6 g/dL (5.7-8.2) Albumin 2.1 g/dL (3.2-4.8) Direct Bilirubin 6.2 mg/dL (<0.3) Ammonia 31 umol/L (11-32) Tumor Marker Alpha Fetoprotein 27.7 ng/mL (0.0-6.4) CA 19-9 Antigen 147 U/mL (0-35) Anti-Nuclear Antibody Screen Negative (Negative) Anti-Nuclear Antibody Comment Comment (.) YARELIS-1 Antibody <0.2 AI (0.0-0.9) SS-A/Ro Antibody <0.2 AI (0.0-0.9) SS-B/La Antibody <0.2 AI (0.0-0.9) Sm Antibody <0.2 AI (0.0-0.9) STUDENT ADVISOR Antibody <0.2 AI (0.0-0.9) Scl-70 (Scleroderma) Antibody <0.2 AI (0.0-0.9) Anti-Double Strand DNA Antibody 1 IU/mL (0-9) Chromatin Antibody <0.2 AI (0.0-0.9) Centromere B Antibody <0.2 AI (0.0-0.9) Test 01/11/25 09:55 01/11/25 06:09 01/10/25 15:53 01/10/25 13:31 Lipase 37 U/L (12-53) Carcinoembryonic Antigen 3.03 ng/mL (<=5.0) Plasma/Serum Blood Alcohol < 3.0 mg/dL (<10) Differential Total Cells Counted 100.0 (100) Neutrophils % (Manual) 54 (37.0-80.0) Band Neutrophils % (Manual) 1 Lymphocytes % (Manual) 23 (10.0-50.0) Monocytes % (Manual) 19 (0-12) Eosinophils % (Manual) 3 (0-7) Basophils % (Manual) 0 (0.0-2.0) Metamyelocytes % (manual) 0 Myelocytes % (Manual) 0 Promyelocytes % (Manual) 0 Blast Cells % (Manual) 0 Reactive Lymphocytes 0 Platelet Estimate Decreased Target Cells Moderate Iron Level 122 ug/dL (50-170) Total Iron Binding Capacity 196 ug/dL (250-425) Percent Iron Saturation 62.2 % (15-50) Ferritin 692.9 ng/mL (10-291) Vitamin B12 Level 1022 pg/mL (211-911) Vitamin D 25-Hydroxy 27.9 ng/mL (30.0-100) Folic Acid 15.99 ng/mL (>5.38) Thyroid Stimulating Hormone (TSH) 2.82 uIU/mL (0.55-4.78) Acetaminophen Level < 2.0 UG/ML (10.0-20.0) Hepatitis A IgM Antibody Negative Hepatitis B Surface Antigen Negative (Negative) Hepatitis B Core IgM Antibody Negative (Negative) Hepatitis C Antibody Negative (Negative) Urine Color Dark-yellow (Yellow) Urine Clarity Turbid (Clear) Urine pH 6.0 (5.0-9.0) Urine Specific Jordan 1.017 (1.001-1.035) Urine Protein Negative (Negative) Urine Ketones Negative (Negative) Urine Blood Negative /uL (Negative) Urine Nitrite Negative (Negative) Urine Bilirubin 2+ (Negative) Urine Urobilinogen 6 mg/dL (Negative) Urine Leukocyte Esterase 1+ /uL (Negative) Urine RBC 3 /hpf (0 - 4) Urine Microscopic WBC 11 /HPF (0-5) Urine Squamous Epithelial Cells Mod /hpf (<5) Urine Bacteria Few /hpf (None Seen) Urine Mucus Few (None Seen) Urine Glucose Normal mg/dL (Normal) Urine Opiates Screen Neg (NEGATIVE) Urine Fentanyl Screen Neg (NEGATIVE) Urine Barbiturates Screen Neg (NEGATIVE) Urine Phencyclidine Screen Neg (NEGATIVE) Urine Amphetamines Screen Neg (NEGATIVE) Urine Benzodiazepines Screen Neg (NEGATIVE) Urine Cocaine Screen Neg (NEGATIVE) Urine Cannabinoids Screen Neg (NEGATIVE) Hemoglobin A1c 4.6 % A1C (<5.7) Other Laboratory Tests 01/14/25 04:44 Brief Hx & Hospital Course: This is a 49-year-old female with no PMHx and not taking any chronic medications, who presents with 2 weeks of bilateral flank pain, progressive in intensity, 10/10, intermittent, radiating to the right lower abdomen, associated with nausea, dysuria and red urine. She reports fever that started yesterday and chills today. Patient also complained of unintentional weight loss and anorexia for a while. She denies nausea, vomiting, abdominal pain, chest pain, cough, SOB, vaginal bleeding, or discharge. She had a UTI in August 2024. Initial lab reviewed revealed bilirubin 8.5, AST of 642, ALT 380, alkaline phosphatase 449, UA with bilirubin 2+, leukocyte esterase 1+, WBC 11, nitrites negative. UDS negative A1c 4.6 iron 122, ferritin 692, % saturation 62.2. Alpha fetoprotein 27.7, CA 19.9 - 147, Ammonia 31. ASHLIE negative, negative for Yarelis 1 antibody/SSA/Ro antibody, SSB/LA antibody/ Mcneil antibody/Scl 70 scleroderma antibody/double- stranded DNA antibody/chromatin antibody/centromere B antibody. Ultrasound of the liver revealed-Cirrhotic liver morphology with 2 cm right hepatic lobe echogenic lesion. .Mild nonspecific gallbladder wall thickening. Renal ultrasound Normal sonographic appearance of the kidneys. No hydronephrosis.-MRCP revealed- lesions within the liver measuring 2.3 cm, 0.9 cm concerning for potential neoplasm. Pancreatic and peripancreatic edema which could represent sequela of pancreatitis. Gallbladder distention and pericholecystic/ gallbladder wall edema. No definitive choledocholithiasis identified. Common bile duct suboptimally characterized but appears normal in caliber. Correlate for cholecystitis. Small volume ascites fluid. Small bowel wall edema/ thickening which can be secondary to portal hypertension, enteritis, inflammatory disease.MRI of the abdomen revealed- Cavernous hemangioma in the right hepatic lobe. Small volume ascites with mesenteric congestion.Nodular contour of the liver correlate for chronic liver disease versus underlying cirrhosis. Patient was seen by Gastroenterology, recommended for conservative management so far. Patient was seen by surgery, patient was treated conservatively. Patient hemodynamically stable, asymptomatic, chronically elevated LFTs. Patient was discharged home with pantoprazole, lactulose, ursodiol, Cipro and Flagyl. Patient was advised to follow up DC clinic/PCP/surgery. Patient will benefit from evaluation and higher level of care center for eventual elective cholecystectomy and liver biopsy. All questions were answered. Patient's meds were sent to the pharmacy electronically. General examination- jaundice present HEENT- PEERLA, no acute nasal discharge Cardiovascular- S1-S2 audible, rate and rhythm regular, no murmur Respiratory- CTAB, no wheeze or rhonchi Gastrointestinal-minimal abdominal wall tenderness+, bowel sound+. Nondistended, positive triana Musculoskeletal-no acute joint swelling or tenderness or redness Lower extremity- no leg edema Neurological- cranial nerves intact, no acute dysarthria or dysphagia Psychiatry- denies depression or SI or HI Skin- no acute rash or purpura Plan of care discussed with Dr. Samuel Operations or Procedures [place] [address] Ph: [phone] DIAGNOSTIC IMAGING Diagnostic Imaging Report : [id number] Signed PATIENT: MADDISON CALLECCT: [id number] UNIT: [id number] : 1975 LOC: OVERFLOW ROOM / BED: [address] [place] [address] AGE / SEX: 49 / F ADM STATUS: ADM IN SERVICE 4374 ORDERING PHYSICIAN: DILLON MURPHY RESIDENT PROCEDURE(s): KIDUS - KIDNEY REASON: rule out hydronephrosis ORDER NUMBER(s): [id number], ACCESSION NUMBER(s): [id number] INDICATION: rule out hydronephrosis TECHNIQUE: Multiple real-time sonographic images of the kidneys and bladder were obtained. COMPARISON: None FINDINGS: The right kidney measures 9.8 cm in length, which is normal in size. There is normal echogenicity of the right kidney. No hydronephrosis. The left kidney measures 9.9 cm in length, which is normal in size. There is normal echogenicity of the left kidney. No hydronephrosis. No large intraluminal masses are seen in the bladder. Prior to voiding the bladder volume measures volume 58 cc. Bladder wall is 1.5 mm Right and left ureteral jets visualized in the bladder Postvoid bladder volume not received IMPRESSION: 1. Normal sonographic appearance of the kidneys. No hydronephrosis. 2. Right kidney measures 9.8 cm. 3. Left kidney measures 9.9 cm. ATED BY: CHRISTIANO RUTHERFORD Jr., DO DICTATED DATE/TIME: 01/10/251929 SIGNED BY: CHRISTIANO RUTHERFORD Jr., SIGNED DATE/TIME: 01/10/251929 CC: [place] [address] Ph: [phone] DIAGNOSTIC IMAGING Diagnostic Imaging Report : [id number] Signed PATIENT: MADDISON CALLECCT: [id number] UNIT: [id number] : 1975 LOC: [facility] ROOM / BED: [address] [place] [address] AGE / SEX: 49 / F ADM STATUS: ADM IN SERVICE 7 ORDERING PHYSICIAN: KHLOE TAY RESIDENT PROCEDURE(s): LIVUS - LIVER REASON: Cirrhosis of liver/hepatitis ORDER NUMBER(s): [id number], ACCESSION NUMBER(s): [id number] CLINICAL HISTORY: Cirrhosis of liver/hepatitis TECHNIQUE: Transabdominal sonogram was performed of the right upper quadrant. COMPARISON: None FINDINGS: The liver is heterogeneous in echogenicity and nodular in contour. There is a 2 cm echogenic lesion within the right hepatic lobe. No intrahepatic biliary ductal dilatation is present. The liver measures 12.5 cm. The gallbladder demonstrates mild nonspecific wall thickening. There is no stones or sludge. Sonographic triana's sign is reported to be absent. The common bile duct is normal in caliber, measuring 4 mm. The partially visualized pancreas is grossly unremarkable. The right kidney is normal in echogenicity and measures 11 cm in length. There is no evidence for hydronephrosis or calculi. IMPRESSION: Cirrhotic liver morphology with 2 cm right hepatic lobe echogenic lesion. Recommend liver MRI or CT with and without IV contrast for further evaluation. Mild nonspecific gallbladder wall thickening. ATED BY: MAGALI BYNUM MD DICTATED DATE/TIME: 01/11/25913 SIGNED BY: MAGALI BYNUM MD SIGNED DATE/TIME: 01/11/25913 CC: [place] [address] Ph: [phone] DIAGNOSTIC IMAGING Diagnostic Imaging Report : [id number] Signed PATIENT: MADDISON CALLECCT: [id number] UNIT: [id number] : 1975 LOC: [facility] ROOM / BED: 0250 / B AGE / SEX: 49 / F ADM STATUS: ADM IN SERVICE 141 ORDERING PHYSICIAN: KHLOE TAY RESIDENT PROCEDURE(s): MRCP - MRCP MRI REASON: TROPONIN JAUNDICE/HEPATITIS/CIRRHOSIS ORDER NUMBER(s): [id number], ACCESSION NUMBER(s): [id number] PROCEDURE: MRI MRCP MRI Indication: TROPONIN JAUNDICE/HEPATITIS/CIRRHOSIS COMPARISON: 01/11/2025 TECHNIQUE: Multiplanar multisequence images of the abdomen are obtained per MRCP protocol. FINDINGS: Adrenal glands unremarkable. The spleen measures 11.5 cm AP. Peripancreatic, pancreatic interstitial edema. Gallbladder distention. Pericholecystic, gallbladder wall edema. The common bile duct is overall poorly characterized but does not appear to be dilated measuring approximately 3 mm. Similarly, the pancreatic duct measures approximately 2 mm. The liver appears cirrhotic morphology. Posterior right hepatic lobe T2 bright lesion/ mass measuring 2.3 cm. Hepatic dome T2 bright lesion/ mass measuring 9 mm. Kidneys demonstrate no hydronephrosis. Stomach partially distended. Small volume of ascites fluid. Small bowel wall edema. IMPRESSION: Cirrhotic morphology appearance liver. There are 2 T2 bright lesions within the liver measuring 2.3 cm, 0.9 cm concerning for potential neoplasm. Recommend multiphasic MRI abdomen with and without contrast. Pancreatic and peripancreatic edema which could represent sequela of pancreatitis. Correlate with appropriate lab values. Gallbladder distention and pericholecystic/ gallbladder wall edema. No definitive choledocholithiasis identified. Common bile duct suboptimally characterized but appears normal in caliber. Correlate for cholecystitis. Small volume ascites fluid. Small bowel wall edema/ thickening which can be secondary to portal hypertension, enteritis, inflammatory disease. Other findings as described Recommend MRI abdomen with and without contrast. ATED BY: ASYA PEREZ MD DICTATED DATE/TIME: 01/11/25 160 SIGNED BY: ASYA PEREZ MD SIGNED DATE/TIME: 01/11/25 160 CC: [place] [address] Ph: [phone] DIAGNOSTIC IMAGING Diagnostic Imaging Report : [id number] Signed PATIENT: MADDISON CALLECCT: [id number] UNIT: [id number] : 1975 LOC: [facility] ROOM / BED: [facility] / AGE / SEX: 49 / F ADM STATUS: ADM IN SERVICE 1634 ORDERING PHYSICIAN: KHLOE TAY RESIDENT PROCEDURE(s): MRABWWO - MRI ABDOMEN W AND WO REASON: ORDER NUMBER(s): [id number], ACCESSION NUMBER(s): [id number] EXAM: MRI MRI ABDOMEN W AND WO HISTORY: SUSPECTED MALIGNANCY OF THE ABDOMEN, PORTAL HYPERTENSION COMPARISON: MRI MRCP MRI on DOS: 01/11/25 TECHNIQUE: Multiplanar, multisequence imaging of the abdomen was performed with and without contrast. FINDINGS: [LOWER CHEST]: Trace bilateral pleural fluid. [LIVER]: Nodular contour of the liver correlate for chronic liver disease versus underlying cirrhosis. T2 hyperintense light bulb bright lesion measuring 2.2 x 1.9 cm in the right hepatic lobe. Upon postcontrast evaluation, peripheral discontinuous nodular enhancement and overall imaging findings compatible with cavernous hemangioma. Progressive fill-in on delayed images. Overall no suspicious arterial enhancing and washing out lesion. Inconspicuous background possible lace-like fibrosis. [SPLEEN]: Small volume ascites in the perisplenic space with mesenteric congestion. [PANCREAS]: The pancreas is normal in appearance without focal lesions. Normal pancreatic duct size. [GALLBLADDER AND DUCTS]: Gallbladder intramural edema. No visualized cholelithiasis. No biliary dilation. The cystic duct, right and left hepatic ducts, common hepatic duct, and common bile ducts are unremarkable. [ADRENAL GLANDS]: Unremarkable. [KIDNEYS]: Normal enhancement without suspicious lesions or hydronephrosis. [VISUALIZED BOWEL]: Grossly unremarkable. [VASCULATURE]: Mesenteric congestion. [LYMPHADENOPATHY]: No evidence for lymphadenopathy. [ASCITES]: Small volume ascites in the perihepatic and perisplenic spaces. [MUSCULOSKELETAL]: Bone marrow signal is normal. [OTHER]: None IMPRESSION: 1. No suspicious arterially enhancing and washout lesions. 2. Cavernous hemangioma in the right hepatic lobe. 3. Small volume ascites with mesenteric congestion. 4. Nodular contour of the liver correlate for chronic liver disease versus underlying cirrhosis. 5. LI-RADS 1 -negative 6. Recommendation: Consider continued surveillance ATED BY: CK FERNANDO MD DICTATED DATE/TIME: 01/11/252099 SIGNED BY: CK FERNANDO MD SIGNED DATE/TIME: 01/11/252099 CC: Patient Name: MADDISON CALLE Acct: [id number] Room: [facility] /Bed: A Attending Physician: KHLOE TAY RESIDENT Loc: [facility] Unit: [id number] CONSULTATION REPORT . ................................................................................ ............................................................................... Consultation - Surgical Date Seen: Jan 12, 2025 Referring Physician Reason for Consultation cholelithiasis, liver mass Allergies and medications Allergies: Coded Allergies: NO KNOWN ALLERGIES (Unverified , 01/10/25) Review of systems Review of Systems: Not Done Examination Vital signs Vital Signs Date Time Temp Pulse Resp B/P (MAP) Pulse Ox O2 Delivery O2 Flow Rate FiO2 01/12/25 09:00 98.6 64 20 93/62 (72) 93 98.6 01/12/25 08:20 Room Air* 0 21 Medications Current Medications Medications (Trade) Dose Ordered Sig/Sunitha Route PRN Reason Start Time Stop Time Status Last Admin Ceftriaxone Sodium 50 ml @ 100 mls/hr DAILY@09 IV 01/11/25 16:30 01/11/25 08:14 DC Pantoprazole Sodium (Protonix Tablet) 40 mg DAILY@0600 PO 01/12/25 06:00 01/12/25 06:15 Lactulose 30 ml DAILY PRN PO FOR CONSTIPATION 01/11/25 16:15 Diagnostic Test (Pha) (Accu-Chek Comfort Curve T) 1 strip ACHS 01/11/25 22:00 01/12/25 12:03 Dextrose 50 ml UD PRN IV Blood Sugar LESS THAN 60 01/11/25 17:15 Metronidazole 100 ml @ 100 mls/hr Q8HR IV 01/12/25 22:00 Laboratory Labs Test 01/12/25 11:45 01/12/25 05:03 01/11/25 12:53 01/11/25 09:55 Range/Units POC Glucose 130 H 70-106 mg/dl White Blood Count 6.4 4.4-10.8 10^3/uL Red Blood Count 3.50 L 4.0-5.20 10^6/uL Hemoglobin 10.9 L 12.2-16.2 g/dL Hematocrit 31.7 L 36.0-46.0 % Mean Corpuscular Volume 90.5 80.0-100.0 fL Mean Corpuscular Hemoglobin 31.2 28.0-32.0 pg Mean Corpuscular Hemoglobin Concent 34.5 32.0-36.0 g/dL Red Cell Distribution Width 17.2 H 11.8-14.3 % Platelet Count 129 L 140-450 10^3/uL Mean Platelet Volume 10.0 6.9-10.8 fL Neutrophils (%) (Auto) 40.0 37.0-80.0 % Lymphocytes (%) (Auto) 40.9 10.0-50.0 % Monocytes (%) (Auto) 15.3 H 0.0-12.0 % Eosinophils (%) (Auto) 3.2 0.0-7.0 % Basophils (%) (Auto) 0.6 0.0-2.0 % Neutrophils # (Auto) 2.6 1.6-8.6 10 ^3/uL Lymphocytes # (Auto) 2.6 0.4-5.4 10 ^3/uL Monocytes # (Auto) 1.0 0-1.3 10 ^3/uL Eosinophils # (Auto) 0.2 0-0.8 10 ^3/uL Basophils # (Auto) 0 0-0.2 10 ^3/uL Nucleated Red Blood Cells 0.3 % Prothrombin Time 16.2 H 9.3-11.8 sec Prothrombin Time INR 1.60 H 0.9-1.15 Activated Partial Thromboplast Time 39.0 H 24.5-34.5 SEC Sodium Level 143 136-145 mmol/L Potassium Level 3.9 3.5-5.1 mmol/L Chloride Level 110 H 98-107 mmol/L Carbon Dioxide Level 25 20-31 mmol/L Anion Gap 8 5-15 Blood Urea Nitrogen 8 L 9-23 mg/dL Creatinine 0.59 0.550-1.02 mg/dL Glomerular Filtration Rate Calc 111 >90 mL/min BUN/Creatinine Ratio 13.6 10.0-20.0 Serum Glucose 64 L 74-106 mg/dL Calcium Level 7.8 L 8.7-10.4 mg/dL Magnesium Level 1.9 1.6-2.6 mg/dL Total Bilirubin 8.1 H 0.2-1.0 mg/dL Direct Bilirubin 6.2 H <0.3 mg/dL Aspartate Amino Transferase (AST) 664 H 13-40 U/L Alanine Aminotransferase (ALT) 385 H 7-40 U/L Alkaline Phosphatase 465 H 46-116 U/L Ammonia 31 11-32 umol/L Total Protein 6.2 5.7-8.2 g/dL Albumin 2.1 L 3.2-4.8 g/dL Tumor Marker Alpha Fetoprotein 27.7 H 0.0-6.4 ng/mL CA 19-9 Antigen 147 H 0-35 U/mL Anti-Nuclear Antibody Screen Negative Negative Anti-Nuclear Antibody Comment Comment . YARELIS-1 Antibody <0.2 0.0-0.9 AI SS-A/Ro Antibody <0.2 0.0-0.9 AI SS-B/La Antibody <0.2 0.0-0.9 AI Sm Antibody <0.2 0.0-0.9 AI STUDENT ADVISOR Antibody <0.2 0.0-0.9 AI Scl-70 (Scleroderma) Antibody <0.2 0.0-0.9 AI Anti-Double Strand DNA Antibody 1 0-9 IU/mL Chromatin Antibody <0.2 0.0-0.9 AI Centromere B Antibody <0.2 0.0-0.9 AI Lipase 37 12-53 U/L Carcinoembryonic Antigen 3.03 <=5.0 ng/mL Plasma/Serum Blood Alcohol < 3.0 <10 mg/dL Test 01/11/25 06:09 01/10/25 15:53 01/10/25 13:31 Range/Units Differential Total Cells Counted 100.0 100 Neutrophils % (Manual) 54 37.0-80.0 Band Neutrophils % (Manual) 1 Lymphocytes % (Manual) 23 10.0-50.0 Monocytes % (Manual) 19 H 0-12 Eosinophils % (Manual) 3 0-7 Basophils % (Manual) 0 0.0-2.0 Metamyelocytes % (manual) 0 Myelocytes % (Manual) 0 Promyelocytes % (Manual) 0 Blast Cells % (Manual) 0 Reactive Lymphocytes 0 Platelet Estimate Decreased Target Cells Moderate Iron Level 122 50-170 ug/dL Total Iron Binding Capacity 196 L 250-425 ug/dL Percent Iron Saturation 62.2 H 15-50 % Ferritin 692.9 H 10-291 ng/mL Vitamin B12 Level 1022 H 211-911 pg/mL Vitamin D 25-Hydroxy 27.9 L 30.0-100 ng/mL Folic Acid 15.99 >5.38 ng/mL Thyroid Stimulating Hormone (TSH) 2.82 0.55-4.78 uIU/mL Acetaminophen Level < 2.0 L 10.0-20.0 UG/ML Hepatitis A IgM Antibody Negative Hepatitis B Surface Antigen Negative Negative Hepatitis B Core IgM Antibody Negative Negative Hepatitis C Antibody Negative Negative Urine Color Dark-yellow Yellow Urine Clarity Turbid H Clear Urine pH 6.0 5.0-9.0 Urine Specific Jordan 1.017 1.001-1.035 Urine Protein Negative Negative Urine Ketones Negative Negative Urine Blood Negative Negative /uL Urine Nitrite Negative Negative Urine Bilirubin 2+ H Negative Urine Urobilinogen 6 Negative mg/dL Urine Leukocyte Esterase 1+ Negative /uL Urine RBC 3 0 - 4 /hpf Urine Microscopic WBC 11 H 0-5 /HPF Urine Squamous Epithelial Cells Mod <5 /hpf Urine Bacteria Few H None Seen /hpf Urine Mucus Few None Seen Urine Glucose Normal Normal mg/dL Urine Opiates Screen Neg NEGATIVE Urine Fentanyl Screen Neg NEGATIVE Urine Barbiturates Screen Neg NEGATIVE Urine Phencyclidine Screen Neg NEGATIVE Urine Amphetamines Screen Neg NEGATIVE Urine Benzodiazepines Screen Neg NEGATIVE Urine Cocaine Screen Neg NEGATIVE Urine Cannabinoids Screen Neg NEGATIVE Hemoglobin A1c 4.6 <5.7 % A1C Microbiology Date/Time Source Procedure Growth Status 01/10/25 15:53 Voided Urine Urine Culture - Preliminary Resulted Examination: GENERAL:Normal, Any Other System: Problem List/Assessment/Plan Problems: (1) Liver mass Assessment and Plan image reports, notes and labs reviewed with Dr. Reynoso Per Dr. Reynoso patient will need higher level of care recommend liver biopsy by IR Plan discussed with Plan discussed with: Other (Dr. reynoso ) Visit Coding Surgery Date of Service if different f: Jan 12, 2025 Billing Provider: SEEMA REYNOSO MD Surgery Visit Codes: 66497 - INP CONSULT <20 MIN SANJIV TONY NP Jan 12, 2025 12:50 DICTATED BY:SANJIV TONY NP DICTATED DATE/TIME:01/12/25 1250 ELECTRONICALLY SIGNED BY:SANJIV TONY NP 01/12/25 1250 ELECTRONICALLY CO-SIGNED BY: Patient: MADDISON CALLE Acct: [id number] : 1975 Loc: [facility] Age/Sex: 49/F [id number] Progress Note Date Seen: Jan 12, 2025 Resident Creating Document: HINA SUNSHINE RESIDENT Medical Necessity Reason Pt with a Central, PICC or Fol: No Subjective Review of Systems 49-year-old female presented to the ER with a chief complaint of flank pain and symptoms of cystitis for the past 4 days. She denies nausea, vomiting, diarrhea or constipation at this time. Also reports hematuria. The patient does not follow up with a physician or does not take any medications. No medical history reported. Denies fever but reported chills. Patient was admitted for pyelonephritis. GI consultation for possible cirrhosis/suspected malignancy 01/11-Patient seen and examined. Underwent MRCP which showed cirrhotic morphology, TTE right lesions within the liver measuring 2.3 cm 0.9 cm potential neoplasm. Pancreatic and peripancreatic edema. Gallbladder distention and pericholecystic gallbladder wall edema. Small volume ascites. Bilirubin 8.1. 01/12-patient seen and examined. Reports abdominal pain. Right upper quadrant pain. Triana sign positive. Objective vital signs Vital Sign Date Time Temp Pulse Resp B/P (MAP) Pulse Ox O2 Delivery O2 Flow Rate FiO2 01/12/25 09:00 98.6 64 20 93/62 (72) 93 98.6 01/12/25 08:20 Room Air* 0 21 Total Intake and Output 01/11/25 01/11/25 01/12/25 15:00 23:00 07:00 Intake Total 50 ml 1520 ml 500 ml Balance 50 ml 1520 ml 500 ml medications Current Medications Medications Dose Ordered Sig/Sunitha Route Start Time Stop Time Status Last Admin Dose Admin Ketorolac Tromethamine 15 mg Q6HPRN PRN IV 01/10/25 16:30 01/15/25 16:29 Ceftriaxone Sodium/Dextrose 50 ml @ 50 mls/hr DAILY IV 01/11/25 08:15 01/12/25 09:52 50 MLS/HR Pantoprazole Sodium 40 mg DAILY@0600 PO 01/12/25 06:00 01/12/25 06:15 40 MG Lactulose 30 ml DAILY PRN PO 01/11/25 16:15 Diagnostic Test (Pha) 1 strip ACHS 01/11/25 22:00 01/12/25 12:03 1 STRIP Dextrose 50 ml UD PRN IV 01/11/25 17:15 Metronidazole 100 ml @ 100 mls/hr Q8HR IV 01/12/25 22:00 Examination Patient lying in bed, in no acute distress General: Well-built, afebrile, palor, scleral icterus noted, mucosa moist Cardiovascular: Regular S1 and S2. No murmurs, gallops or rubs. No JVD elevation. No pedal edema Respiratory: Normal B/L air entry on room air. Clear lung sounds on auscultation Abdomen: Soft, right upper quadrant pain and tenderness, Triana positive, nondistended, normoactive bowel sounds, no rebound tenderness, no organomegaly, no masses Genitourinary: Deferred MSK/skin: Mobilizes 4 limbs. Skin is dry and warm Neurological: No motor, no sensitive deficits, normal speech. Pupils are isocoric and reactive. Psych/Mental Status: A/Ox3 laboratory and microbiology Laboratory Tests 01/12/25 05:03 Test 01/12/25 05:03 Range/Units Serum Glucose 64 L 74-106 mg/dL Microbiology Date/Time Source Procedure Growth Status 01/10/25 15:53 Voided Urine Urine Culture - Preliminary Resulted Labs and/or images reviewed: Labs reviewed by me, Image(s) reviewed by me Problem List/Assessment/Plan Problem List/Assessment/Plan Unspecified cirrhosis-meld score 19 Hepatic mass likely cavernous hemangioma Cholestatic liver disease Rule out acute hepatitis Acute cystitis Anemia likely hemodilution Severe protein calorie malnutrition Vitamin-D deficiency Iron panel shows normal iron, low TIBC, high% saturation, high ferritin Lipase 37 Plan: Recommendation: Dr. Henson: Triana positive, surgery consultation appreciated. MRCP shows: The common bile duct is overall poorly characterized but does not appear to be dilated measuring approximately 3 mm. Similarly, the pancreatic duct measures approximately 2 mm. MRI abdomen shows the hepatic masses likely cavernous hemangioma right hepatic lobe. Conservative management recommended at this time. Ursodiol b.i.d.. Patient would benefit from liver biopsy, ASHLIE screen negative. Elevated CA 19 9 and AFP.antimitochondrial antibody test send out Serum alcohol, Tylenol level was unremarkable Continue Protonix 40 mg daily We will continue to follow up Plan discussed with patient in which all questions have been answered Case discussed with Dr. Henson Plan discussed with: Patient HINA SUNSHINE Jan 12, 2025 15:48 E/M VISIT PERFORMED BY: TRANSCRIBED BY:HINA SUNSHINE TRANSCRIBED DATE/TIME:01/12/25 1548 ELECTRONICALLY SIGNED BY:HINA SUNSHINE 01/12/25 154 ELECTRONICALLY CO-SIGNED BY: Condition at Discharge: Stable Final Diagnosis/Problems List # liver cirrhosis of unknown etiology #possible cholecystitis # Ruled out choledocholithiasis # liver hemangioma # suspected malignancy of the liver # transaminitis # ascites # suspected portal hypertension # UTI Discharge Disposition: Home Discharge Instruct/Medications Diet: Regular Activity: No Restrictions, As Tolerated Follow Up/Referral: ID clinic PCP Surgery GI specialist Medications: As prescribed Scheduled Ciprofloxacin Hcl (Ciprofloxacin Hcl), 1 TAB PO BID Lactulose (Lactulose), 30 GM PO DAILY Metronidazole (Flagyl), 1 TAB PO TID Pantoprazole Sodium Sesquihydr (Pantoprazole Sodium), 40 MG PO DAILY Ursodiol (Ursodiol), 300 MG PO BID Discharge Statement: "Patient was advised to return to the ER or call 911 if any headaches, dizziness, shortness of breath, chest pain, abdominal pain, bleeding, fevers, or worsening of medical condition. Patient was counseled about treatment plan, medications, possible side effects, patientverbalized understanding. All questions were answered to the best of my ability. This discharge took greater then 30 minutes in planning, reviewing documentation, counseling the patient, and discussing with other team members." ASSESSMENT ASSESSMENT Assessment # acute hepatic failure likely cirrhosis of liver# suspected cholecystitis# liver hemangioma# cirrhosis of liver# suspected malignancy of the liver# transaminitis# ascites# suspected portal hypertension# UTI Visit Coding STANDARD RES Billing Provider: SONDRA SAMUEL MD Date of Service if different f: Jan 14, 2025 Common Visit Codes: 69064-VBR/OBS DISCH DAY >30min KHLOE TAY RESIDENT Jan 14, 2025 15:11
== END 2025-01-14 14:05 | disposition home or self-care (01) | DRG 689 ==
LOC: ER 12:25 → OVERFLOW 16:18 → EAST 20:50
PROVIDERS: ADMIT Internal Medicine Geriatric Medicine; ATTEND Internal Medicine Geriatric Medicine
DX: N30.00 Acute cystitis without hematuria (principal); E43 Unspecified severe protein-calorie malnutrition; C22.8 Malignant neoplasm of liver, primary, unspecified as to type; K76.6 Portal hypertension; R18.8 Other ascites; R16.0 Hepatomegaly, not elsewhere classified; K81.9 Cholecystitis, unspecified; K75.9 Inflammatory liver disease, unspecified; D64.9 Anemia, unspecified; D18.09 Hemangioma of other sites; E55.9 Vitamin D deficiency, unspecified; K74.60 Unspecified cirrhosis of liver; R74.01 Elevation of levels of liver transaminase levels; Z68.24 Body mass index [BMI] 24.0-24.9, adult
CPT/HCPCS: 36415; 74181; 74183; 76705; 76775; 80048; 80053; 80074; 80307; 80320; 80329; 81001; 82105; 82140; 82248; 82306; 82378; 82607; 82728; 82746; 82962; 83036; 83516; 83540; 83550; 83690; 83735; 84443; 85007; 85025; 85027; 85610; 85730; 86038; 86225; 86235; 86301; 87086; 96360; G0378; J1885; J3490